=== PATIENT | female | born 1990 | race Caucasian/White ===

== ENCOUNTER 2019-01-28 18:27 | Emergency (ER) | payer OTHER ==
[~2019-01-28] VITALS: Ht 162.6 cm; Wt 131.8 kg
[2019-01-28] MEDS ORDERED: RIZA5TAB PO (18:41)
[2019-01-28] MEDS ORDERED: BUSP10TA PO (18:41)
[2019-01-28] MEDS ORDERED: VYVA40CA3 PO (18:41)
[2019-01-28] MEDS ORDERED: FLUO40CA PO (18:41)
[2019-01-28] MEDS ORDERED: RIZA10TA4 PO (18:41)
[2019-01-28] MEDS ORDERED: MECLIZINE 25 MG TABLET PO ONE (18:45)
[2019-01-28] MEDS ORDERED: NS 1,000 ML IV ONE (19:30)
[2019-01-28] MEDS ORDERED: MECL-68 PO (20:35)
[2019-01-28] MEDS ORDERED: ACETAMINOPHEN 500 MG TAB As Ordered ONE (20:58)
[2019-01-28] MEDS ORDERED: ACETAMINOPHEN 500 MG TAB PO ONE (21:00)
[2019-01-28 21:24] VITALS: BP 121/78
== END 2019-01-28 21:25 | disposition home or self-care (01) ==
LOC: EDBD 18:27 → M ED 18:27
DX: I95.1 Orthostatic hypotension (principal); H82.9 Vertiginous syndromes in diseases classified elsewhere, unspecified ear; H83.09 Labyrinthitis, unspecified ear; E66.01 Morbid (severe) obesity due to excess calories; F32.9 Major depressive disorder, single episode, unspecified; F41.9 Anxiety disorder, unspecified; F84.5 Asperger's syndrome; F90.9 Attention-deficit hyperactivity disorder, unspecified type; Z79.899 Other long term (current) drug therapy

== ENCOUNTER 2019-03-08 21:57 | Emergency (ER) | payer OTHER ==
[~2019-03-08] VITALS: Ht 162.6 cm; Wt 129.6 kg
[~2019-03-08 21:57] MED LIST: BUSP10TA PO; FLUO40CA PO; MECL-68 PO; RIZA10TA58 PO; RIZA5TAB PO; VYVA40CA3 PO
[2019-03-08] MEDS ORDERED: IBUPROFEN 100 MG/5 ML SUSP UDC DYE FREE PO ONE (23:45)
[2019-03-08] MEDS ORDERED: CEPHALEXIN SUSP POWDER 250MG/5ML BTL 100ML PO ONE (23:45)
[2019-03-09] MEDS ORDERED: KEFL500C17 PO (00:31)
[2019-03-09] MEDS ORDERED: IBUP-1022 PO (00:31)
[2019-03-09 01:14] VITALS: BP 128/82
[2019-03-09] MEDS ORDERED: PRED20TA PO (07:21)
[2019-03-09] MEDS ORDERED: AUGM875T28 PO (07:21)
[2019-03-10] MEDS ORDERED: AUGM875T28 PO (09:32)
[2019-03-10] MEDS ORDERED: BUSP30TA PO (09:32)
[2019-03-10] MEDS ORDERED: MECL-68 PO (09:32)
[2019-03-10] MEDS ORDERED: VYVA50CA4 PO (09:32)
[2019-03-10] MEDS ORDERED: PRED20TA PO (09:32)
[2019-03-10] MEDS ORDERED: FLUO20CA8 PO (09:32)
== END 2019-03-09 01:16 | disposition home or self-care (01) ==
LOC: M ED 21:57
DX: J03.90 Acute tonsillitis, unspecified (principal); Z79.899 Other long term (current) drug therapy

== ENCOUNTER 2019-03-09 06:31 | Emergency (ER) | payer OTHER ==
[~2019-03-09] VITALS: Ht 162.6 cm; Wt 129.6 kg
[~2019-03-09 06:31] MED LIST changes: +IBUP-1022 PO; +KEFL500C17 PO
[2019-03-09] MEDS ORDERED: AUGM875T28 PO (07:21)
[2019-03-09] MEDS ORDERED: PRED20TA PO (07:21)
[2019-03-09] MEDS ORDERED: AUGMENTIN 875 MG TAB PO ONE (07:30)
[2019-03-09] MEDS ORDERED: methylPREDNISolone INJ 125 MG/2 ML VIAL (J2930) IV ONE (07:30)
[2019-03-09] MEDS ORDERED: NS 1,000 ML IV ONE (07:30)
[2019-03-09 10:43] VITALS: BP 134/84
[2019-03-10] MEDS ORDERED: MECL-68 PO (09:32)
[2019-03-10] MEDS ORDERED: PRED20TA PO (09:32)
[2019-03-10] MEDS ORDERED: VYVA50CA4 PO (09:32)
[2019-03-10] MEDS ORDERED: AUGM875T28 PO (09:32)
[2019-03-10] MEDS ORDERED: BUSP30TA PO (09:32)
[2019-03-10] MEDS ORDERED: FLUO20CA8 PO (09:32)
== END 2019-03-09 11:08 | disposition home or self-care (01) ==
LOC: M ED 06:31
DX: J03.90 Acute tonsillitis, unspecified (principal); F84.5 Asperger's syndrome; F41.9 Anxiety disorder, unspecified; Z79.899 Other long term (current) drug therapy; Z98.890 Other specified postprocedural states; Z86.69 Personal history of other diseases of the nervous system and sense organs
CPT/HCPCS: 87880; 96374; 99284; J2930

== ENCOUNTER 2019-03-10 00:32 | Inpatient (IN) | payer OTHER ==
[~2019-03-10] VITALS: Ht 162.6 cm; Wt 129.6 kg
[~2019-03-10 00:32] MED LIST changes: +AUGM875T28 PO; +PRED20TA PO
[2019-03-10] MEDS ORDERED: ISOVUE-370 76% 100ML VIAL (Q9967) As Ordered ONE (05:40)
[2019-03-10] MEDS ORDERED: NS 1,000 ML IV ONE (05:45)
[2019-03-10] MEDS ORDERED: methylPREDNISolone INJ 125 MG/2 ML VIAL (J2930) IV ONE (05:45)
[2019-03-10 06:08] LABS: BASO # 0.1 10^3/uL (0.0-0.2); BASO % 0.4 % (0.0-1.0); HEMATOCRIT 38.3 % (36.0-47.0); HEMOGLOBIN 13.2 g/dl (12.0-15.5); LYMPH # 3.5 10^3/uL (1.5-5.0); LYMPH % 19.8 % (24.0-44.0); MEAN CORPUSCULAR HEMOGLOBIN 30.9 pg (27.0-33.0); MEAN CORPUSCULAR HGB CONC 34.5 g/dl (32.0-36.5); MEAN CORPUSCULAR VOLUME 89.7 fl (80.0-96.0); MONO # 1.7 10^3/uL (0.0-0.8); MONO % 9.7 % (0.0-5.0); NEUTROPHILS # 12.1 10^3/uL (1.5-8.5); NEUTROPHILS % 69.4 % (36.0-66.0); PLATELET COUNT, AUTOMATED 190 10^3/uL (150-450); RED BLOOD COUNT 4.27 10^6/uL (4.00-5.40); WHITE BLOOD COUNT 17.5 10^3/uL (4.0-10.0)
[2019-03-10 06:28] LABS: BLOOD UREA NITROGEN 14 MG/DL (7-18); C REACTIVE PROTEIN QUANTITATIV 9.02 MG/DL (0.00-0.30); CALCIUM LEVEL 8.7 MG/DL (8.5-10.1); CARBON DIOXIDE LEVEL 26 MEQ/L (21-32); CHLORIDE LEVEL 104 MEQ/L (98-107); CREATININE FOR GFR 0.66 MG/DL (0.55-1.30); GLOMERULAR FILTRATION RATE > 60.0 (>60); GLUCOSE, FASTING 119 MG/DL (70-100); POTASSIUM SERUM 4.2 MEQ/L (3.5-5.1); SODIUM LEVEL 137 MEQ/L (136-145)
--- NOTE | 2019-03-10 07:17 | REPVR ---
PROCEDURE INFORMATION: Exam: CT Neck With Contrast Exam date and time: 03/10/2019 5:35 AM Clinical history: 28 years old, female; Throat pain; Additional info: Right peritonsillar swelling w/ uvula dev TECHNIQUE: Imaging protocol: Computed tomography images of the neck with intravenous contrast. Radiation optimization: All CT scans at this facility use at least one of these dose optimization techniques: automated exposure control; mA and/or kV adjustment per patient size (includes targeted exams where dose is matched to clinical indication); or iterative reconstruction. Contrast material: ISO; Contrast volume: 75 ml; Contrast route: AC; COMPARISON: No relevant prior studies available. FINDINGS: Nasopharynx: Unremarkable. Oropharynx: There is diffuse enlargement of the palatine tonsils and, right greater than left. There is focal ill-defined hypodensity within the right tonsil, potentially developing abscess. Hypopharynx: Unremarkable Larynx: There is diffuse edema of the right epiglottis and right aryepiglottic fold, with effacement of the right vallecula and right piriform sinus. Retropharyngeal space: Unremarkable. Submandibular/Parotid glands: There is diffuse enlargement of the right submandibular gland, with associated inflammatory change, compatible with sialoadenitis. Inflammatory change appears to extend into the right floor of mouth. Thyroid: Normal. No enlarged or calcified nodules. Lymph nodes: There are enlarged upper cervical lymph nodes asymmetric to the right, likely reactive in nature Trachea: Visualized trachea is unremarkable. Lungs: Unremarkable as visualized. Bones/joints: Unremarkable. No acute fracture. Soft tissues: Unremarkable. No significant soft tissue swelling. IMPRESSION: 1. Right submandibular sialadenitis with extension into the right floor of mouth and larynx. Findings are worrisome for developing Lee angina. Close clinical monitoring and if evaluation are recommended. 2. Asymmetric enlargement of the right palatine tonsil with an ill-defined hypodensity, potentially developing peritonsillar abscess. 3. Reactive lymphadenopathy. Electronically signed by: Qi Groves On 03/10/2019 07:17:45 AM
[2019-03-10] MEDS ORDERED: CLINDAMYCIN 600 MG in IV 1 EA IV ONE (09:00)
[2019-03-10] MEDS ORDERED: INFLUENZA QUADRIVALENT PEDIATRIC PF VACCINE 0.25ML SYR (90685) IM ONE (09:00)
[2019-03-10] MEDS ORDERED: LIDOCAINE VISCOUS 2% SOLN 15ML UDC SS PRN (09:30)
[2019-03-10] MEDS ORDERED: AUGM875T28 PO (09:32)
[2019-03-10] MEDS ORDERED: BUSP30TA PO (09:32)
[2019-03-10] MEDS ORDERED: VYVA50CA4 PO (09:32)
[2019-03-10] MEDS ORDERED: PRED20TA PO (09:32)
[2019-03-10] MEDS ORDERED: FLUO20CA8 PO (09:32)
[2019-03-10] MEDS ORDERED: MECL-68 PO (09:32)
[2019-03-10] MEDS ORDERED: RIZATRIPTAN MLT 10 MG TAB PO PRN (10:15)
--- NOTE | 2019-03-10 10:24 | HPEPDOC ---
General Date of Admission 03/10/19 Date of Service: Mar 10, 2019 Chief Complaint The patient is a 28-year-old female admitted with a reason for visit of Throat Pain. History of Present Illness This is 28 years old, obese, white female with past medical history of migraine headache and psychiatric problems, had developed sore throat since last 2-3 days which progressively was getting worse. She was unable to swallow and the pain also radiated towards right neck and throat and decided come to ER. In the ED, patient received IV clindamycin Solu-Medrol and had a CT of the neck done which was consistent with peritonsillar cellulitis and right-sided sialoadenitis of submandibular region and we were asked to admit patient for observation. Patient is still complaining of pain and swelling in her throat and right side of her neck but no chest pain, fever, nausea, vomiting or shortness of breath Home Medications Scheduled Amoxicillin/Potassium Clav (Augmentin 875-125 Tablet) 1 Each Tablet, 875 MG PO BID, (Reported) for 10 days, started 03/09/19 Buspirone HCl (Buspirone HCl) 30 Mg Tablet, 30 MG PO BID, (Reported) Fluoxetine Hcl (Fluoxetine HCl) 20 Mg Capsule, 80 MG PO DAILY, (Reported) Lisdexamfetamine Dimesylate (Vyvanse) 50 Mg Capsule, 50 MG PO DAILY, (Reported) Prednisone (Prednisone) 20 Mg Tablet, 60 MG PO DAILY, (Reported) for 5 days, started 03/09/19 Scheduled PRN Meclizine HCl (Meclizine HCl) 25 Mg Tablet, 25 MG PO Q8H PRN for DIZZINESS, (Rep orted) Rizatriptan Benzoate (Rizatriptan) 10 Mg Tab.rapdis, 10 MG PO ASDIRECTED PRN for MIGRAINE, (Reported) Allergies Coded Allergies: No Known Allergies (Unverified , 01/28/19) Past Medical History Medical History Migraine headache, psychiatric problems. Patient did not specified the names. Surgical History Bilateral knee surgery and oral surgery Family History Significant Family History: No pertinent family hx Social History * Smoker: Denies Alcohol: Denies Drugs: denies A-FIB/CHADSVASC A-FIB History Current/History of A-Fib/PAF?: No Review of Systems Constitutional: Denies: Chills, Fever, Malaise, Night Sweats, Weakness, Fatigue, Weight Loss, Lethargy, Other Eyes: Denies: Pain, Vision change, Conjunctivae inflammation, Eyelid inflammation, Redness, Other ENT: Reports: Sore Throat, Other Symptoms (social work, swelling and pain right side of neck) Skin: Denies: Rash, Lesions, Jaundice, Bruising, Itching, Dry, Breakdown, Nail Changes, Other Pulmonary: Denies: Dyspnea, Cough, Pleuritic Chest Pain, Other Symptoms Cardiovascular: Denies: Chest Pain, Palpitations, Orthopnea, Paroxysmal Noc. Dyspnea, Edema, Lt Headedness, Other Symptoms Gastrointestinal: Denies: Nausea, Vomiting, Abdominal Pain, Diarrhea, Constipation, Melena, Hematochezia, Other Symptoms Genitourinary: Denies: Dysuria, Frequency, Incontinence, Hematuria, Retention, Other Symptoms Hematologic: Denies: Bruising, Bleeding Excessively, Petecchia, Purpura, Enlarged Lymph Nodes, Other Hematologic Endocrine: Denies: Polydipsia, Polyphagia, Polyuria, Heat Intolerance, Cold Intolerance, Other Endocrine Sx Musculoskeletal: Denies: Neck Pain, Back Pain, Shoulder Pain, Arm Pain, Hand Pain, Leg Pain, Foot Pain, Joint Pain, Muscle Pain, Spasms, Other Symptoms Neurological: Denies: Weakness, Numbness, Incoordination, Change in speech, Confusion, Seizures, Other Symptoms Psych: Denies: Mood Normal, Anxiety, Depression, Memory Issues, Thoughts of Self Harm, Anger, Thoughts of Harming Other, Other Psych Physical Examination General Exam: Positive: Alert, Cooperative Eye Exam: Positive: PERRLA, Conjunctiva & lids normal ENT Exam: Positive: Other ENT (. Unable to open her mouth wide for examination or tonsillar area secondary to pain and swelling. Positive tenderness on palpation right side of neck on the submandibular area) Neck Exam: Positive: Other (. As above) Chest Exam: Negative: Clear to auscultation, Normal air movement, Rales, Rhonchi, Wheezing, Diminished, Other Heart Exam: Negative: Rate Normal, Tachycardic, Bradycardic, Regular Rhythm, Irregular Rhythm, Normal S1, Normal S2, Gallops, Murmurs, Rubs, Other Abdomen Exam: Negative: Normal bowel sounds, BS Hyperactive, BS Hypoactive, Soft, Tenderness, Hepatospenomegaly, Mass, Hernia, Other Extremity Exam: Negative: Clubbing, Cyanosis, Edema, Normal pulses, Tenderness, Swelling, Other Skin Exam: Negative: Nl turgor and temperature, Rash, Breakdown, Lesion, Pruritus, Other skin issue Neuro Exam: Negative: Normal Gait, Normal Speech, Strength at 5/5 X4 ext, Normal Tone, Sensation Intact, Cranial Nerves 3-12 NL, Reflexes 2+, Other Psych Exam: Positive: Mood NL, Oriented x 3 Vital Signs Vital Signs Date Time Temp Pulse Resp B/P (MAP) Pulse Ox O2 Delivery O2 Flow Rate FiO2 03/10/19 06:00 88 20 132/72 (92) 100 Room Air 03/10/19 00:32 98.3 Laboratory Data Labs 24H Laboratory Tests 2 03/10/19 05:55: Immature Granulocyte % (Auto) 0.7, Neutrophils (%) (Auto) 69.4H, Lymphocytes (%) (Auto) 19.8L, Monocytes (%) (Auto) 9.7H, Eosinophils (%) (Auto) 0.0, Basophils (%) (Auto) 0.4, Neutrophils # (Auto) 12.1H, Lymphocytes # (Auto) 3.5, Monocytes # (Auto) 1.7H, Eosinophils # (Auto) 0.0, Basophils # (Auto) 0.1, Nucleated Red Blood Cells % (auto) 0.0, Anion Gap 7L, Glomerular Filtration Rate > 60.0, Calcium Level 8.7, C-Reactive Protein, Quantitative 9.02H CBC/BMP Laboratory Tests 03/10/19 05:55 Microbiology Microbiology 03/10/19 Blood Culture, Received Pending 03/10/19 Blood Culture, Received Pending Problems (1) Peritonsillitis Status: Acute Problem Text: 28 years old white female admitted with the diagnosis of peritonsillar cellulitis and sialoadenitis right submandibular area. Patient received clindamycin and IV Solu-Medrol in the ED for symptom relief and treatment Will admit patient to observation for for further close observation 24-48 hours to monitor for airway patency IV fluids normal saline at 70 mL per hour Clindamycin 600 mg IV every 6 hours Solu-Medrol 40 mg IV every 8 hours Lidocaine viscous solution when necessary Tylenol and Toradol when necessary for pain ENT consult was called from ED and is pending Will continue close monitoring as patient's shows significant improvement in her symptoms. She will be discharged home in next 24-48 hours (2) Sialadenitis Status: Acute Problem Text: As above Plan / VTE VTE Prophylaxis Ordered?: Yes RUPERT RUEDA MD Mar 10, 2019 10:24
[2019-03-10] MEDS ORDERED: methylPREDNISolone INJ 40 MG/1 ML VIAL (J2920) IV SCH (11:00)
[2019-03-10] MEDS ORDERED: LIDOCAINE VISCOUS 2% SOLN 15ML UDC SSP PRN (11:00)
[2019-03-10 11:15] VITALS: BP 137/77
--- NOTE | 2019-03-10 11:32 | ER ---
DATE OF CONSULTATION: 03/10/2019 REQUESTING PHYSICIAN: Simon Young MD, from the emergency room REASON FOR CONSULTATION: Is 2-day history of tonsillitis with possible swelling of the neck and possible early peritonsillar abnormality. HISTORY OF PRESENT ILLNESS: This pleasant but obese 28-year-old woman has a significant history of psychiatric issues and also migraine headaches. For the last 3 days or so, has had progressive sore throat. She has gone to the emergency room 2 days prior, received amoxicillin with clavulanic acid and feels as though it is progressively getting worse. She came in early this morning, reporting that she was unable to swallow, had pain radiating down her right neck. She was seen in the emergency room on 03/09/2019 and did receive Solu-Medrol, and the nurse who had seen her yesterday in the emergency room was the one that was also there today seeing her and stated there was a little bit more swelling on the right side of the neck, although not much. The patient reports progressive symptomatology with regard to the pain and also had reported that she has been drinking some water, but it has been difficult for her to take in fluids. She denies any chills. She believes she may have had a fever. She denies any hemoptysis or hematemesis. She denies any chest pain, fever at this time, nausea, vomiting or shortness of breath. She is currently able to handle her secretions. PAST MEDICAL HISTORY: Includes migraine headaches, psychiatric issues including generalized anxiety disorder. PAST SURGICAL HISTORY: Bilateral knee surgery and oral surgery in the past. CURRENT HOME MEDICATIONS: Included: - Augmentin one tablet 875 twice a day for 10 days - buspirone 30 mg tablet by mouth twice a day - fluoxetine 20 mg capsules, 80 mg daily - vyvanse 50 mg capsules by mouth daily - prednisone 20 mg, 60 mg by mouth daily - rizatriptan 10 mg tablets for migraine headaches as needed ALLERGIES: No known drug allergies. FAMILY HISTORY: Is noncontributory. SOCIAL HISTORY: Denies alcohol, drugs, or smoking history. REVIEW OF SYSTEMS: Denies fevers, chills, malaise, night sweats, weight loss. Eyes: Denies change in vision or eye pain. Ears, nose, and throat (ENT): She reports a sore throat and right side neck pain. Skin: Denies any rashes or bruising. Pulmonary: Denies dyspnea, cough, or chest pain. Cardiovascular: Denies palpitations, orthopnea, or lightheadedness. Gastrointestinal: Denies nausea, vomiting, abdominal pain. Genitourinary: Denies dysuria, frequency, or hematuria. Hematological: Denies bruising, bleeding, petechiae, purpura. Endocrine: Denies polydipsia, polyphagia, polyuria. Musculoskeletal: Denies back pain, shoulder pain. Neurological: Denies any weakness or numbness. Psychiatric: Does report anxiety and history of depression and memory issues. PHYSICAL EXAMINATION: The patient is seen in emergency room bay 17. The patient was initially resting comfortably on her left side when I came into the room and in no acute distress or pain. She is morbidly obese. The pinna, external canals, tympanic membranes are within normal limits. External nasal pyramid is unremarkable. Nasal mucosa is unremarkable. The patient is able to open up her mouth about 2.5-3 cm inter incisor. She has a small oral airway. The uvula is close to midline but possibly mildly shifted to the left. There is a little bit of exudative tonsillitis bilaterally present. There is a widely patent posterior oropharynx. No muffled voice. She has tenderness in the right submandibular region, but no induration is present. The angle of the mandible is easily palpable. She has generalized tenderness on the right side of the neck which cannot be adequately palpated as the patient reported pain. The left side did not show significant pain but mild pain. It should be mentioned that her vital signs, her temperature was 98.3, blood pressure is 132/72, pulse oximetry is 100% on room air. White count was 17.5, hemoglobin was 13.2, hematocrit 38.3, platelet count was 190. Blood cultures are pending. CT of the neck performed 03/10/2019 revealed right submandibular sialadenitis with extension into the right possible floor of mouth, worrisome for possible developing Lee angina. Asymmetric enlargement of the right palatine tonsil with an ill-defined hypodensity, potentially developing peritonsillar abscess and reactive lymphadenopathy. I IMPRESSION: Is a patient with acute right sialadenitis, as well as acute tonsillitis. Currently, no clear evidence of peritonsillar abscess at this time. Clinically, she does not have the appearance of a Lee angina, as the swelling in the floor is soft. There is no swelling underneath the floor of the tongue, and the submental region is soft. There is tenderness more in the right submandibular gland and swelling on the CT scan of the submandibular gland compatible with sialadenitis. My impression is that she has bad tonsillitis potentially on the way to potential peritonsillar abscess but has not developed at this time. Also, sialadenitis of the right submandibular gland with some lymphadenopathy, as well as generalized anxiety disorder. Currently, no evidence of any progression of her airway issues. She has received clindamycin in the intravenous (IV) form today and also Solu-Medrol. PLAN: At this point is to observe her for any potential issues with regard to her airway, but currently no significant issues are noted. Most likely, the patient has a bad tonsillitis with a right submandibular sialadenitis, as well. Would recommend the IV clindamycin. Will also have her use viscous lidocaine. We will have her on clear liquids today and see if she develops into either an abscess or if she shows signs of improvement. She is in agreement with this plan, and the options were discussed with her, with the nurse. All of her questions were answered. Will follow the patient with you. Thank you for this consultation. ALEJANDRA
[2019-03-10] MEDS: KETOROLAC 30 MG/ML VIAL (J1885) IV PRN ×2 (12:06→19:51)
[2019-03-10] MEDS: ENOXAPARIN 40 MG/0.4 ML SYRINGE (J1650) SC SCH (12:07)
[2019-03-10] MEDS: FLUoxetine 20 MG CAP PO SCH (12:07)
[2019-03-10] MEDS ORDERED: CLINDAMYCIN 600 MG in IV 1 EA IV SCH (13:00)
[2019-03-10] MEDS: busPIRone 10 MG TAB PO SCH ×2 (14:45→20:45)
[2019-03-10] MEDS: CLINDAMYCIN 600 MG in IV 1 EA IV SCH ×2 (14:45→20:45)
[2019-03-10] MEDS: methylPREDNISolone INJ 40 MG/1 ML VIAL (J2920) IV SCH ×2 (14:45→22:14)
[2019-03-10 16:00] VITALS: BP 135/93
[2019-03-10 20:00] VITALS: BP 125/77
[2019-03-11] VITALS: BP 124/80
[2019-03-11] MEDS: ACETAMINOPHEN TAB 650MG DOSE (2X325MG) PO PRN ×4 (00:41→20:26)
[2019-03-11] MEDS: CLINDAMYCIN 600 MG in IV 1 EA IV SCH ×4 (03:10→21:05)
[2019-03-11] MEDS: KETOROLAC 30 MG/ML VIAL (J1885) IV PRN ×3 (03:11→23:13)
[2019-03-11] MEDS: methylPREDNISolone INJ 40 MG/1 ML VIAL (J2920) IV SCH ×3 (06:00→23:01)
[2019-03-11 08:00] VITALS: BP 144/90
[2019-03-11 08:18] LABS: HEMATOCRIT 37.7 % (36.0-47.0); HEMOGLOBIN 12.5 g/dl (12.0-15.5); MEAN CORPUSCULAR HEMOGLOBIN 30.2 pg (27.0-33.0); MEAN CORPUSCULAR HGB CONC 33.2 g/dl (32.0-36.5); MEAN CORPUSCULAR VOLUME 91.1 fl (80.0-96.0); PLATELET COUNT, AUTOMATED 203 10^3/uL (150-450); RED BLOOD COUNT 4.14 10^6/uL (4.00-5.40); WHITE BLOOD COUNT 14.2 10^3/uL (4.0-10.0)
[2019-03-11 08:54] LABS: ALBUMIN 2.6 GM/DL (3.2-5.2); ALT/SGPT 78 U/L (12-78); BILIRUBIN,TOTAL 0.9 MG/DL (0.2-1.0); BLOOD UREA NITROGEN 16 MG/DL (7-18); CALCIUM LEVEL 8.5 MG/DL (8.5-10.1); CARBON DIOXIDE LEVEL 25 MEQ/L (21-32); CHLORIDE LEVEL 109 MEQ/L (98-107); CREATININE FOR GFR 0.54 MG/DL (0.55-1.30); GLOMERULAR FILTRATION RATE > 60.0 (>60); GLUCOSE, FASTING 134 MG/DL (70-100); MAGNESIUM LEVEL 2.4 MG/DL (1.8-2.4); POTASSIUM SERUM 4.1 MEQ/L (3.5-5.1); SODIUM LEVEL 139 MEQ/L (136-145); TOTAL PROTEIN 7.2 GM/DL (6.4-8.2)
[2019-03-11] MEDS: FLUoxetine 20 MG CAP PO SCH (09:21)
[2019-03-11] MEDS: busPIRone 10 MG TAB PO SCH ×2 (09:21→21:05)
[2019-03-11] MEDS: ENOXAPARIN 40 MG/0.4 ML SYRINGE (J1650) SC SCH (09:21)
--- NOTE | 2019-03-11 10:41 | IPN ---
DATE: 03/11/2019 SUBJECTIVE: The patient is feeling much better today. She was awakened from sleep. She denies any fevers or chills. She still has a little bit of pain in the right neck region, right submandibular region, not as much pain in the back of the throat as she had previously. She has not attempted to eat today but she is feeling better. OBJECTIVE: Vital signs: Today her temperature is 97.9, blood pressure 124/80, pulse 98% on room air. The overall appearance is the patient has much less swelling in the right neck region, right submandibular gland region, but still swollen. The pinna, external canals, tympanic membranes are within normal limits and nasal exam shows no discrete lesions. No purulent discharge. Oral exam shows the uvula is close to midline, slight inflammation still in right tonsillar region more than the left tonsillar region but airway is good. No evidence of any impending airway obstruction and the patient feels that the airway is much better today than it was yesterday. She has no tenderness to percussion of her mandibular molars or premolars. She is seen with the nurse present. She does have tenderness in the right submandibular gland and right zone II of the neck region as well. IMPRESSION: Patient is significantly improved today compared to yesterday. Impression is that she had acute tonsillitis and acute right submandibular sialadenitis. PLAN: The plan at this point is that I do not believe she has been require surgical intervention today, and I think she will likely just respond to the oral antibiotics for the 24 hours and then consider being placed on oral antibiotics. We will have her start mechanical soft diet today to see how she does. We will her nothing by mouth after midnight just in case there is any other significant issues; however, I do not believe that there will be any further issues and will likely be able to be discharged tomorrow morning if she continues to have good response. Care plan was discussed with her nurse and again would recommend have an n.p.o. after midnight and advance to mechanical soft diet. Continue with IV antibiotics today and consider tomorrow morning, if all goes well, switching to oral and considering discharge tomorrow.
--- NOTE | 2019-03-11 11:01 | IPNPDOC ---
Subjective Date Seen The patient was seen on 03/11/19. Subjective Chief Complaint/HPI Patient's swelling has decreased significantly and feeling much better. She is able to open her mouth General: Denies: ROS Unobtainable, Chills, Night Sweats, Fatigue, Malaise, Normal Appetite, Other Symptoms Constitutional: Denies: Chills, Fever, Malaise, Night Sweats, Weakness, Fatigue, Weight Loss, Lethargy, Other Eyes: Denies: Pain, Vision change, Conjunctivae inflammation, Eyelid inflammation, Redness, Other ENT: Reports: Sore Throat Skin: Denies: Rash, Lesions, Jaundice, Bruising, Itching, Dry, Breakdown, Nail Changes, Other Pulmonary: Denies: Dyspnea, Cough, Pleuritic Chest Pain, Other Symptoms Cardiovascular: Denies: Chest Pain, Palpitations, Orthopnea, Paroxysmal Noc. Dy spnea, Edema, Lt Headedness, Other Symptoms Gastrointestinal: Denies: Nausea, Vomiting, Abdominal Pain, Diarrhea, Constipation, Melena, Hematochezia, Other Symptoms Genitourinary: Denies: Dysuria, Frequency, Incontinence, Hematuria, Retention, Other Symptoms Musculoskeletal: Denies: Neck Pain, Back Pain, Shoulder Pain, Arm Pain, Hand Pain, Leg Pain, Foot Pain, Joint Pain, Muscle Pain, Spasms, Other Symptoms Neurological: Denies: Weakness, Numbness, Incoordination, Change in speech, Confusion, Seizures, Other Symptoms Objective Physical Examination General Exam: Positive: Alert, Cooperative Eye Exam: Positive: PERRLA, Conjunctiva & lids normal ENT Exam: Positive: Other ENT (. Unable to open her mouth wide for examination or tonsillar area secondary to pain and swelling. Positive tenderness on palpation right side of neck on the submandibular area) Neck Exam: Positive: Other (. As above) Chest Exam: Negative: Clear to auscultation, Normal air movement, Rales, Rhonch i, Wheezing, Diminished, Other Heart Exam: Negative: Rate Normal, Tachycardic, Bradycardic, Regular Rhythm, Irregular Rhythm, Normal S1, Normal S2, Gallops, Murmurs, Rubs, Other Abdomen Exam: Negative: Normal bowel sounds, BS Hyperactive, BS Hypoactive, So ft, Tenderness, Hepatospenomegaly, Mass, Hernia, Other Extremity Exam: Negative: Clubbing, Cyanosis, Edema, Normal pulses, Tenderness, Swelling, Other Skin Exam: Negative: Nl turgor and temperature, Rash, Breakdown, Lesion, Pruritus, Other skin issue Neuro Exam: Negative: Normal Gait, Normal Speech, Strength at 5/5 X4 ext, Normal Tone, Sensation Intact, Cranial Nerves 3-12 NL, Reflexes 2+, Other Psych Exam: Positive: Mood NL, Oriented x 3 Assessment /Plan Problems (1) Peritonsillitis Status: Acute Problem Text: Patient is responding very well to IV clindamycin and IV steroids Her WBC is significantly reduced and she is feeling better symptomatically Has swelling has significantly decreased. She is able to open her mouth and tolerated feeding ENT follow-up appreciated Eschen, most likely will be discharged home tomorrow (2) Sialadenitis Status: Acute Problem Text: Continue present care Plan/VTE VTE Prophylaxis Ordered?: Yes VS, I&O, 24H, Fishbone Vital Signs/I&O Vital Signs Date Time Temp Pulse Resp B/P (MAP) Pulse Ox O2 Delivery O2 Flow Rate FiO2 03/11/19 00:00 97.9 88 18 124/80 (95) 98 Room Air I&O- Last 24 Hours up to 6 AM 03/11/19 06:00 Intake Total 2105 ml Output Total 1300 ml Balance 805 ml Laboratory Data 24H LABS Laboratory Tests 2 03/11/19 08:03: Nucleated Red Blood Cells % (auto) 0.0, Anion Gap 5L, Glomerular Filtration Rate > 60.0, Calcium Level 8.5, Magnesium Level 2.4, Total Bilirubin 0.9, Aspartate Amino Transf (AST/SGOT) 24, Alanine Aminotransferase (ALT/SGPT) 78, Alkaline Phosphatase 88, Total Protein 7.2, Albumin 2.6L, Albumin/Globulin Ratio 0.57L CBC/BMP Laboratory Tests 03/11/19 08:03 Microbiology Microbiology 03/10/19 Blood Culture - Preliminary, Resulted No growth after 24 hours . All specim... 03/10/19 Blood Culture - Preliminary, Resulted No growth after 24 hours . All specim... RUPERT RUEDA MD Mar 11, 2019 11:01
[2019-03-11 16:00] VITALS: BP 138/90
[2019-03-11 20:00] VITALS: BP 136/80
[2019-03-12] VITALS (10 sets, daily range): BP systolic 102–139; BP diastolic 61–90
[2019-03-12] MEDS: CLINDAMYCIN 600 MG in IV 1 EA IV SCH ×4 (03:23→20:01)
[2019-03-12] MEDS: ACETAMINOPHEN TAB 650MG DOSE (2X325MG) PO PRN (04:35)
[2019-03-12] MEDS: methylPREDNISolone INJ 40 MG/1 ML VIAL (J2920) IV SCH ×2 (06:39→18:20)
[2019-03-12 07:48] LABS: HEMOGLOBIN 12.6 g/dl (12.0-15.5); MEAN CORPUSCULAR HEMOGLOBIN 30.4 pg (27.0-33.0); MEAN CORPUSCULAR HGB CONC 33.2 g/dl (32.0-36.5); MEAN CORPUSCULAR VOLUME 91.8 fl (80.0-96.0); PLATELET COUNT, AUTOMATED 208 10^3/uL (150-450); RED BLOOD COUNT 4.14 10^6/uL (4.00-5.40); WHITE BLOOD COUNT 14.2 10^3/uL (4.0-10.0)
[2019-03-12 08:10] LABS: ATYPICAL LYMPH 7 % (0-5); LYMPHOCYTES 14 % (16-44); NEUTROPHILS 79 % (28-66); PLATELET ESTIMATE NORMAL (NORMAL)
[2019-03-12] MEDS: FLUoxetine 20 MG CAP PO SCH (08:11)
[2019-03-12] MEDS: ENOXAPARIN 40 MG/0.4 ML SYRINGE (J1650) SC SCH (08:11)
[2019-03-12] MEDS: busPIRone 10 MG TAB PO SCH ×2 (08:11→20:01)
[2019-03-12 08:15] LABS: ALBUMIN 2.3 GM/DL (3.2-5.2); ALT/SGPT 57 U/L (12-78); BILIRUBIN,TOTAL 0.9 MG/DL (0.2-1.0); BLOOD UREA NITROGEN 16 MG/DL (7-18); CALCIUM LEVEL 8.3 MG/DL (8.5-10.1); CARBON DIOXIDE LEVEL 27 MEQ/L (21-32); CHLORIDE LEVEL 107 MEQ/L (98-107); CREATININE FOR GFR 0.65 MG/DL (0.55-1.30); GLOMERULAR FILTRATION RATE > 60.0 (>60); GLUCOSE, FASTING 132 MG/DL (70-100); POTASSIUM SERUM 4.4 MEQ/L (3.5-5.1); SODIUM LEVEL 138 MEQ/L (136-145); TOTAL PROTEIN 6.6 GM/DL (6.4-8.2)
[2019-03-12] MEDS ORDERED: INFLUENZA QUADRIVALENT PF VACCINE 0.5ML SYRINGE (90686) IM ONE (09:00)
--- NOTE | 2019-03-12 11:05 | IPNPDOC ---
Subjective Date Seen The patient was seen on 03/12/19. Subjective Chief Complaint/HPI Patient is scheduled for surgery today for drainage of abscess on right side of her neck General: Denies: ROS Unobtainable, Chills, Night Sweats, Fatigue, Malaise, Normal Appetite, Other Symptoms Constitutional: Denies: Chills, Fever, Malaise, Night Sweats, Weakness, Fatigue, Weight Loss, Lethargy, Other ENT: Reports: Other Symptoms (increased swelling and firmness on right side of her neck, under the mandible, left) Pulmonary: Denies: Dyspnea, Cough, Pleuritic Chest Pain, Other Symptoms Cardiovascular: Denies: Chest Pain, Palpitations, Orthopnea, Paroxysmal Noc. Dyspnea, Edema, Lt Headedness, Other Symptoms Gastrointestinal: Denies: Nausea, Vomiting, Abdominal Pain, Diarrhea, Constipation, Melena, Hematochezia, Other Symptoms Neurological: Denies: Weakness, Numbness, Incoordination, Change in speech, Confusion, Seizures, Other Symptoms Psych: Denies: Mood Normal, Anxiety, Depression, Memory Issues, Thoughts of Self Harm, Anger, Thoughts of Harming Other, Other Psych Objective Physical Examination General Exam: Positive: Alert, Cooperative Eye Exam: Positive: PERRLA, Conjunctiva & lids normal ENT Exam: Positive: Other ENT (. Unable to open her mouth wide for examination or tonsillar area secondary to pain and swelling. Positive tenderness on palpation right side of neck on the submandibular area) Neck Exam: Positive: Other (. As above) Chest Exam: Negative: Clear to auscultation, Normal air movement, Rales, Rhon chi, Wheezing, Diminished, Other Heart Exam: Negative: Rate Normal, Tachycardic, Bradycardic, Regular Rhythm, Irregular Rhythm, Normal S1, Normal S2, Gallops, Murmurs, Rubs, Other Abdomen Exam: Negative: Normal bowel sounds, BS Hyperactive, BS Hypoactive, Soft, Tenderness, Hepatospenomegaly, Mass, Hernia, Other Extremity Exam: Negative: Clubbing, Cyanosis, Edema, Normal pulses, Tenderness, Swelling, Other Skin Exam: Negative: Nl turgor and temperature, Rash, Breakdown, Lesion, Pruritus, Other skin issue Neuro Exam: Negative: Normal Gait, Normal Speech, Strength at 5/5 X4 ext, Normal Tone, Sensation Intact, Cranial Nerves 3-12 NL, Reflexes 2+, Other Psych Exam: Positive: Mood NL, Oriented x 3 Assessment /Plan Problems (1) Peritonsillar abscess Status: Acute Problem Text: Peritonsillitis has now formally formed into a peritonsillar abscess ENT consult and follow-up is appreciated Patient is a scheduled for I&D of right submandibular abscess today Will await wound cultures. Once available Continue IV antibiotics Will taper off IV solumedrol Further recommendations as per ENT (2) Sialadenitis Status: Acute Problem Text: Continue present care Plan/VTE VTE Prophylaxis Ordered?: Yes VS, I&O, 24H, Fishbone Vital Signs/I&O Vital Signs Date Time Temp Pulse Resp B/P (MAP) Pulse Ox O2 Delivery O2 Flow Rate FiO2 03/12/19 08:00 97.7 82 16 128/80 (96) 97 Room Air I&O- Last 24 Hours up to 6 AM 03/12/19 05:59 Intake Total 2100 ml Output Total 1150 ml Balance 950 ml Laboratory Data 24H LABS Laboratory Tests 2 03/12/19 07:19: Nucleated Red Blood Cells % (auto) 0.0, Neutrophils 79H, Lymphocytes (Manual) 14L, Atypical Lymphocytes 7H, Red Blood Cell Morphology NORMAL, Platelet Estimate NORMAL, Anion Gap 4L, Glomerular Filtration Rate > 60.0, Calcium Level 8.3L, Total Bilirubin 0.9, Aspartate Amino Transf (AST/SGOT) 17, Alanine Aminotransferase (ALT/SGPT) 57, Alkaline Phosphatase 75, Total Protein 6.6, Albumin 2.3L, Albumin/Globulin Ratio 0.53L CBC/BMP Laboratory Tests 03/12/19 07:19 Microbiology Microbiology 03/10/19 Blood Culture - Preliminary, Resulted No Growth after 48 hours. All Specime... 03/10/19 Blood Culture - Preliminary, Resulted No Growth after 48 hours. All Specime... RUPERT RUEDA MD Mar 12, 2019 11:05
[2019-03-12] MEDS ORDERED: BUPIVACAINE HCL 0.25% 10 ML VIAL As Ordered ONE (12:09)
[2019-03-12] MEDS ORDERED: LIDOCAINE 1% MDV 20ML VIAL As Ordered ONE (12:09)
[2019-03-12] MEDS ORDERED: LIDOCAINE W/EPINEPHRINE 1% 20ML VIAL As Ordered ONE (12:10)
[2019-03-12] MEDS ORDERED: PHENYLEPHRINE 0.5% NASAL SPRAY 15 ML As Ordered ONE (12:10)
[2019-03-12] MEDS ORDERED: METHYLENE BLUE 0.5% (5MG/ML) 10 ML AMP (PROVAYBLUE)(Q9968 PER 1MG) As Ordered ONE (12:10)
[2019-03-12] MEDS ORDERED: CETACAINE SPRAY 5GM As Ordered ONE (12:17)
[2019-03-12] MEDS ORDERED: ROCURONIUM BROMIDE 50 MG/5 ML VIAL As Ordered ONE (12:17)
[2019-03-12] MEDS ORDERED: fentaNYL 250 MCG/5 ML INJECTION (J3010) As Ordered ONE (12:17)
[2019-03-12] MEDS ORDERED: PROPOFOL 200 MG/20 ML VIAL As Ordered ONE (12:17)
[2019-03-12] MEDS ORDERED: MIDAZOLAM INJ 2 MG/2 ML VIAL (J2250) As Ordered ONE ×2 (12:17→12:47)
[2019-03-12] MEDS ORDERED: LIDOCAINE 2% INJ 100 MG/5 ML SDV (FOR ANES.) As Ordered ONE (12:17)
[2019-03-12] MEDS ORDERED: SUCCINYLCHOLINE 100 MG/5 ML SYRINGE (J0330) As Ordered ONE (12:17)
[2019-03-12] MEDS ORDERED: KETAMINE HCL 200 MG/20 ML VIAL As Ordered ONE (12:52)
[2019-03-12] MEDS ORDERED: ONDANSETRON 4MG/2ML VIAL (J2405) As Ordered ONE (13:26)
[2019-03-12] MEDS ORDERED: METOCLOPRAMIDE INJ 10MG/2ML VIAL (J2765) As Ordered ONE (13:26)
[2019-03-12] MEDS ORDERED: dexameTHASONE 4 MG/ML 1ML VIAL (J1100) As Ordered ONE (13:26)
[2019-03-12] MEDS ORDERED: KETOROLAC 60 MG/2 ML VIAL (J1885) As Ordered ONE (13:26)
[2019-03-12] MEDS ORDERED: LR 1,000 ML IV SCH (14:15)
[2019-03-12] MEDS ORDERED: ONDANSETRON 4MG/2ML VIAL (J2405) IV PRN (14:15)
[2019-03-12] MEDS ORDERED: HYDROMORPHONE HCL 0.5 MG/ 0.5 ML SYRINGE (J1170 PER 1) IV PRN (14:15)
[2019-03-12] MEDS ORDERED: fentaNYL 100 MCG/2 ML INJECTION (J3010) IV PRN (14:15)
[2019-03-12] MEDS ORDERED: METOCLOPRAMIDE INJ 10MG/2ML VIAL (J2765) IV PRN (14:15)
[2019-03-12] MEDS ORDERED: oxyCODONE 5MG TAB PO PRN (14:15)
[2019-03-12] MEDS ORDERED: GLYCOPYRROLATE INJ 0.2 MG/ML 2 ML VIAL As Ordered ONE (14:27)
[2019-03-12] MEDS ORDERED: SCOPOLAMINE 1MG TRANSDERMAL PATCH TOP ONE (16:00)
[2019-03-13] VITALS (7 sets, daily range): BP systolic 117–137; BP diastolic 66–90
[2019-03-13] MEDS: KETOROLAC 30 MG/ML VIAL (J1885) IV PRN ×3 (01:40→17:58)
[2019-03-13] MEDS: CLINDAMYCIN 600 MG in IV 1 EA IV SCH ×4 (03:50→20:00)
[2019-03-13] MEDS: methylPREDNISolone INJ 40 MG/1 ML VIAL (J2920) IV SCH (06:22)
[2019-03-13 07:03] LABS: HEMATOCRIT 39.5 % (36.0-47.0); MEAN CORPUSCULAR HEMOGLOBIN 30.3 pg (27.0-33.0); MEAN CORPUSCULAR HGB CONC 32.9 g/dl (32.0-36.5); MEAN CORPUSCULAR VOLUME 92.1 fl (80.0-96.0); PLATELET COUNT, AUTOMATED 241 10^3/uL (150-450); RED BLOOD COUNT 4.29 10^6/uL (4.00-5.40); WHITE BLOOD COUNT 13.3 10^3/uL (4.0-10.0)
[2019-03-13 08:02] LABS: ATYPICAL LYMPH 7 % (0-5); LYMPHOCYTES 18 % (16-44); MONOCYTES 10 % (0-5); NEUTROPHILS 63 % (28-66); PLATELET ESTIMATE NORMAL (NORMAL)
[2019-03-13 08:03] LABS: ANISOCYTOSIS 1+
[2019-03-13] MEDS: ENOXAPARIN 40 MG/0.4 ML SYRINGE (J1650) SC SCH (08:39)
[2019-03-13] MEDS: ACETAMINOPHEN TAB 650MG DOSE (2X325MG) PO PRN ×2 (08:40→16:28)
[2019-03-13] MEDS: busPIRone 10 MG TAB PO SCH ×2 (08:40→19:59)
[2019-03-13] MEDS: FLUoxetine 20 MG CAP PO SCH (08:41)
--- NOTE | 2019-03-13 08:49 | RO ---
DATE OF PROCEDURE: 03/12/2019 PREOPERATIVE DIAGNOSIS: Patient initially with peritonsillar cellulitis initially improving on IV antibiotics and then this morning started to take a turn for the worse on IV clindamycin with stabilizing white count but increasing peritonsillar swelling on the right side, also slight increase in right neck swelling and induration. POSTOPERATIVE DIAGNOSIS: Right peritonsillar abscess finally developed and also with right neck cellulitis but no abscess at this time. OPERATION PERFORMED: Incision and drainage of right peritonsillar abscess intraorally. The patient was prepared for possible emergency tracheotomy if necessary. SURGEON: Dr. Juan De La Rosa. ANESTHESIA: General via endotracheal tube. INDICATIONS FOR PROCEDURE: This patient initially improving on IV antibiotics. However, this morning, significant change with peritonsillar swelling on the right side and potential abscess formation in the neck but definitely significantly more cellulitis on the right side. PROCEDURE IN DETAIL: With the patient brought in from the recovery room, the nurse life insurance specialist had reported that patient was sprayed with benzocaine in the preop area and then patient was coughing and had some spontaneous pus drainage and thought it may be about 20 mL or possibly more and then the patient still came to the operating room and then with the GlideScope, awake visualization was done with us being prepared for tracheotomy if necessary. Prior to looking with the GlideScope the patient's landmarks were identified and she was prepped and draped in the usual fashion for possible emergency tracheotomy if necessary. The patient then was prepared and a GlideScope was initially utilized. It was somewhat difficult for the anesthesiologist and the life insurance specialist to initially get the endotracheal tube in but we were successful and the patient then was put to sleep. The patient was turned 90 degrees placed in the Taya position, grooved tongue blade was placed with a Renny Ellie mouth gag and there was pus that was in the posterior oropharynx on the right side. This was suctioned out and cultured. There was a needle that was placed in the right peritonsillar region. Some pus was obtained and then an 11 blade was used to make an incision approximately 1-1/2 to 2 cm and then dissected with tonsillar snaps along the peritonsillar abscess site. The patient had about 5 mL of pus that was drained out of that area. However in the preop area, apparently there was more present after she was anesthetized with topical oral anesthetic. At this point, the cavity was then probed with Q-tips and was cleaned with hydrogen peroxide and Q-tips. The neck was re-evaluated and 18-gauge needle was placed in two separate sites. There was no ballotability. There was no pus that was obtained from the right neck region and appeared to be primarily cellulitic changes. At this point, decision was made not to open up the neck as there was pus that was in the peritonsillar region and this seemed to be the nidus of the infection. The uvula went closer to the midline after dissection was done and this was cleaned out. At this point, the wound was copiously irrigated with saline and then an LTA was placed to prevent any laryngospasm and then the patient was turned over to the anesthesiologist. The patient was extubated without any problems and could significantly in the postop area open up the oral cavity significantly wider than before. We will have her continue with IV antibiotics and have her on clear liquid diet and then follow her and make sure she does not develop any further infections or abscesses. Estimated blood loss was 10 mL. Cultures obtained were aerobic, anaerobic and Gram stains were sent.
[2019-03-13] MEDS ORDERED: INFLUENZA QUADRIVALENT PF VACCINE 0.5ML SYRINGE (90686) IM ONE (09:00)
--- NOTE | 2019-03-13 11:49 | IPNPDOC ---
Subjective Date Seen The patient was seen on 03/13/19. Subjective Chief Complaint/HPI Patient is decreased, but swelling is still present on right side of face and neck General: Reports: ROS Unobtainable Constitutional: Denies: Chills, Fever, Malaise, Night Sweats, Weakness, Fatigue, Weight Loss, Lethargy, Other Eyes: Denies: Pain, Vision change, Conjunctivae inflammation, Eyelid inflammation, Redness, Other ENT: Reports: Other Symptoms (swelling of right side of face and neck) Skin: Denies: Rash, Lesions, Jaundice, Bruising, Itching, Dry, Breakdown, Nail Changes, Other Pulmonary: Denies: Dyspnea, Cough, Pleuritic Chest Pain, Other Symptoms Cardiovascular: Denies: Chest Pain, Palpitations, Orthopnea, Paroxysmal Noc. Dyspnea, Edema, Lt Headedness, Other Symptoms Gastrointestinal: Denies: Nausea, Vomiting, Abdominal Pain, Diarrhea, Constipation, Melena, Hematochezia, Other Symptoms Musculoskeletal: Denies: Neck Pain, Back Pain, Shoulder Pain, Arm Pain, Hand Pain, Leg Pain, Foot Pain, Joint Pain, Muscle Pain, Spasms, Other Symptoms Neurological: Denies: Weakness, Numbness, Incoordination, Change in speech, Confusion, Seizures, Other Symptoms Objective Physical Examination General Exam: Positive: Alert, Cooperative Eye Exam: Positive: PERRLA, Conjunctiva & lids normal ENT Exam: Positive: Other ENT (. Positive swelling right side of face and neck below the mandible decreased tenderness) Chest Exam: Negative: Clear to auscultation, Normal air movement, Rales, Rhonchi, Wheezing, Diminished, Other Heart Exam: Negative: Rate Normal, Tachycardic, Bradycardic, Regular Rhythm, Irregular Rhythm, Normal S1, Normal S2, Gallops, Murmurs, Rubs, Other Abdomen Exam: Negative: Normal bowel sounds, BS Hyperactive, BS Hypoactive, Soft, Tenderness, Hepatospenomegaly, Mass, Hernia, Other Extremity Exam: Negative: Clubbing, Cyanosis, Edema, Normal pulses, Tenderness, Swelling, Other Skin Exam: Negative: Nl turgor and temperature, Rash, Breakdown, Lesion, Pruritus, Other skin issue Neuro Exam: Negative: Normal Gait, Normal Speech, Strength at 5/5 X4 ext, Normal Tone, Sensation Intact, Cranial Nerves 3-12 NL, Reflexes 2+, Other Psych Exam: Positive: Mood NL, Oriented x 3 Assessment /Plan Problems (1) Peritonsillar abscess Status: Acute Problem Text: Peritonsillitis has now formally formed into a peritonsillar abscess Status post I&D by ENT. Official report pending Wound culture sent out for culture and sensitivity reports pending Continue IV antibiotics To continue tapering off his Solu-Medrol Will follow ENTs recommendations (2) Sialadenitis Status: Acute Problem Text: Continue present care Plan/VTE VTE Prophylaxis Ordered?: Yes VS, I&O, 24H, Fishbone Vital Signs/I&O Vital Signs Date Time Temp Pulse Resp B/P (MAP) Pulse Ox O2 Delivery O2 Flow Rate FiO2 03/13/19 08:00 97.5 70 18 129/88 (102) 97 Room Air 03/12/19 17:50 1.0 I&O- Last 24 Hours up to 6 AM 03/13/19 05:59 Intake Total 2120 ml Output Total 1060 ml Balance 1060 ml Laboratory Data 24H LABS Laboratory Tests 2 03/13/19 06:53: Nucleated Red Blood Cells % (auto) 0.0, Neutrophils 63, Band Neutrophils 2, Lymphocytes (Manual) 18, Monocytes (Manual) 10H, Atypical Lymphocytes 7H, Anisocytosis 1+, Platelet Estimate NORMAL CBC/BMP Laboratory Tests 03/13/19 06:53 Microbiology Microbiology 03/12/19 Gram Stain - Final, Resulted 03/12/19 Abscess Culture, Resulted Pending 03/12/19 Anaerobic Culture, Resulted Pending 03/12/19 Gram Stain - Final, Resulted 03/12/19 Abscess Culture, Resulted Pending 03/12/19 Anaerobic Culture, Resulted Pending 03/10/19 Blood Culture - Preliminary, Resulted No Growth after 72 hours. All specime... 03/10/19 Blood Culture - Preliminary, Resulted No Growth after 72 hours. All specime... RUPERT RUEDA MD Mar 13, 2019 11:49
[2019-03-13] MEDS ORDERED: ISOVUE-370 76% 100ML VIAL (Q9967) As Ordered ONE (12:24)
[2019-03-13] MEDS: predniSONE 10 MG TAB PO SCH (13:22)
--- NOTE | 2019-03-13 13:27 | REP ---
Clinical: History of recent incision and drainage for right peritonsillar abscess. Technique: Axial contrast enhanced images from the skull base to the thoracic inlet with coronal and sagittal re-formations. Comparison: 03/10/2019. Findings: Extensive inflammatory changes including swelling, inflammatory stranding, adenopathy, and ill-defined areas of low density suggesting insinuating fluid as well as scattered foci of gas are identified primarily noted in the right perimandibular, submandibular and parapharyngeal spaces. These findings are consistent with the previously diagnosed right submandibular sialadenitis and small right peritonsillar abscess for which incision and drainage was performed. Mass effect along with moderate contralateral shift to the airway through the oropharynx and floor of the mouth extending to the right parapharyngeal region is again identified. No obvious discrete residual abscess is appreciated. Reactive adenopathy noted. Impression: 1. Findings consistent with continued evidence for right-sided submandibular sialoadenitis with surrounding soft tissue swelling extending into the right side of the oropharynx and parapharyngeal space similar to prior examination. 2. New foci of gas consistent with recent incision and drainage. No obvious discrete residual drainable collection is identified. 3. The airway remains patent but should be correlated with physical examination as mass effect along the right side is noted. Electronically Signed by Joon Sharma MD 03/13/2019 01:19 P
[2019-03-13] MEDS: cefTAZidime 1 GM in D5W MINI-BAG PLUS 50 ML IV SCH (16:15)
--- NOTE | 2019-03-13 20:14 | IPN ---
DATE: 03/13/2019 SUBJECTIVE: The patient is postoperative day #1 status post incision and drainage of a right peritonsillar abscess who initially had lilli pus that was identified. She last night did have a small blood clot that came out of the incision and drainage site early in the morning. Bleeding stopped after she started to suck on ice chips and was controlled. Initially postoperatively she could open up her mouth very wide in the recovery room. Today, she is having a little bit more difficulty with opening up her mouth. She feels better than she did previous to surgery but not as well as she did initially after the surgical intervention. Mom is at the bedside. She reports no chills. She feels somewhat improved from the previous day but not significantly improved from prior to surgery. There is still some swelling and tenderness in the right cheek upper neck region. OBJECTIVE: The patient is currently afebrile for the last 24 hours. Current temperature is 97.5, blood pressure is 129/88, pulse oximetry is 97% on room air. Generalized, the patient still has some obvious swelling, now appears to be more over the right parotid region, right posterior aspect. It appears to be less indurated today. The needle pokes show no sign of infection from needle aspiration which was negative for any pus yesterday. Intraoral exam reveals the incision and drainage site to the right peritonsillar abscess site shows a little bit of purulent saliva discharge present. However, the uvula is becoming more midline. Pressing on the neck did not increase any of the drainage from this area. She has no problems with her airway or talking. LABORATORY DATA: White count is 13.3, which is down from the previous day, initially on 03/10/2019 it was 17.5. She has had decreased neutrophils but does show two bands which she did not show the previous day. She also is showing some atypical lymphocytes. Gram stains yesterday revealed many gram-positive cocci in pairs and chains, many gram-negative rods, and moderate gram-positive rods, so polymicrobial. IMPRESSION: Patient with multiple organisms identified on Gram stain. She had been previously on Augmentin as an outpatient and then started on IV clindamycin and initially showed some improvement but then worsening was identified yesterday. She was take to the OR. Cultures and sensitivities will be pending. PLAN: At this point, because of the gram-negative rods which are not covered well by clindamycin, we will have the nurse consult with the hospitalist. I would recommend considering adding ceftazidime 1 gram IV every 8 hours for gram-negative mervin coverage. Will also order a CT scan to see if there is any occult abscess site that could not be identified at the time of surgery. I suspect this is just more generalized cellulitis but would like to be proactive. Because the patient's gram-negative mervin status and decreased ability of clindamycin to cover that, the patient may need added coverage. Will order the CT scan. Will have her nothing by mouth after midnight just in case things progress. However, I do not believe that they are. She is clinically improved. However, still a fair amount of soft tissue swelling which I believe is more cellulitis and another focus of abscess site. Will follow the patient.
[2019-03-14] MEDS: KETOROLAC 30 MG/ML VIAL (J1885) IV PRN ×2 (00:02→23:30)
[2019-03-14] MEDS: cefTAZidime 1 GM in D5W MINI-BAG PLUS 50 ML IV SCH ×4 (00:03→23:30)
[2019-03-14] MEDS: CLINDAMYCIN 600 MG in IV 1 EA IV SCH ×4 (02:52→21:13)
[2019-03-14] MEDS: ACETAMINOPHEN TAB 650MG DOSE (2X325MG) PO PRN ×2 (02:55→07:57)
[2019-03-14] MEDS ORDERED: KETOROLAC 30 MG/ML VIAL (J1885) IV ONE (03:00)
[2019-03-14 06:47] LABS: BASO % 0.3 % (0.0-1.0); HEMATOCRIT 37.3 % (36.0-47.0); HEMOGLOBIN 12.4 g/dl (12.0-15.5); LYMPH # 1.3 10^3/uL (1.5-5.0); LYMPH % 13.6 % (24.0-44.0); MEAN CORPUSCULAR HEMOGLOBIN 30.3 pg (27.0-33.0); MEAN CORPUSCULAR HGB CONC 33.2 g/dl (32.0-36.5); MEAN CORPUSCULAR VOLUME 91.2 fl (80.0-96.0); MONO # 0.8 10^3/uL (0.0-0.8); MONO % 8.5 % (0.0-5.0); NEUTROPHILS # 7.4 10^3/uL (1.5-8.5); NEUTROPHILS % 75.4 % (36.0-66.0); PLATELET COUNT, AUTOMATED 209 10^3/uL (150-450); RED BLOOD COUNT 4.09 10^6/uL (4.00-5.40); WHITE BLOOD COUNT 9.8 10^3/uL (4.0-10.0)
[2019-03-14 07:02] LABS: ALBUMIN 2.2 GM/DL (3.2-5.2); ALT/SGPT 33 U/L (12-78); BILIRUBIN,TOTAL 0.7 MG/DL (0.2-1.0); BLOOD UREA NITROGEN 19 MG/DL (7-18); CALCIUM LEVEL 8.1 MG/DL (8.5-10.1); CARBON DIOXIDE LEVEL 27 MEQ/L (21-32); CHLORIDE LEVEL 103 MEQ/L (98-107); CREATININE FOR GFR 0.75 MG/DL (0.55-1.30); GLOMERULAR FILTRATION RATE > 60.0 (>60); GLUCOSE, FASTING 99 MG/DL (70-100); POTASSIUM SERUM 3.6 MEQ/L (3.5-5.1); SODIUM LEVEL 137 MEQ/L (136-145); TOTAL PROTEIN 6.3 GM/DL (6.4-8.2)
[2019-03-14 08:00] VITALS: BP 120/58
[2019-03-14] MEDS: FLUoxetine 20 MG CAP PO SCH (09:14)
[2019-03-14] MEDS: busPIRone 10 MG TAB PO SCH ×2 (09:15→21:13)
[2019-03-14] MEDS: predniSONE 10 MG TAB PO SCH (09:15)
--- NOTE | 2019-03-14 09:22 | IPNPDOC ---
Subjective Date Seen The patient was seen on 03/14/19. Subjective Chief Complaint/HPI Patient is comfortable, complains that swelling is still present on right side of her face and neck and complaining of some pain at the site General: Denies: ROS Unobtainable, Chills, Night Sweats, Fatigue, Malaise, Normal Appetite, Other Symptoms Constitutional: Denies: Chills, Fever, Malaise, Night Sweats, Weakness, Fatigue, Weight Loss, Lethargy, Other ENT: Reports: Other Symptoms (swelling and pain at the right side of face and neck) Pulmonary: Denies: Dyspnea, Cough, Pleuritic Chest Pain, Other Symptoms Cardiovascular: Denies: Chest Pain, Palpitations, Orthopnea, Paroxysmal Noc. Dyspnea, Edema, Lt Headedness, Other Symptoms Gastrointestinal: Denies: Nausea, Vomiting, Abdominal Pain, Diarrhea, Consti pation, Melena, Hematochezia, Other Symptoms Musculoskeletal: Denies: Neck Pain, Back Pain, Shoulder Pain, Arm Pain, Hand Pain, Leg Pain, Foot Pain, Joint Pain, Muscle Pain, Spasms, Other Symptoms Neurological: Denies: Weakness, Numbness, Incoordination, Change in speech, Confusion, Seizures, Other Symptoms Objective Physical Examination General Exam: Positive: Alert, Cooperative Eye Exam: Positive: PERRLA, Conjunctiva & lids normal ENT Exam: Positive: Other ENT (. Positive swelling right side of face and neck below the mandible decreased tenderness) Chest Exam: Negative: Clear to auscultation, Normal air movement, Rales, Rhonchi, Wheezing, Diminished, Other Heart Exam: Negative: Rate Normal, Tachycardic, Bradycardic, Regular Rhythm, Irregular Rhythm, Normal S1, Normal S2, Gallops, Murmurs, Rubs, Other Abdomen Exam: Negative: Normal bowel sounds, BS Hyperactive, BS Hypoactive, Soft, Tenderness, Hepatospenomegaly, Mass, Hernia, Other Extremity Exam: Negative: Clubbing, Cyanosis, Edema, Normal pulses, Tenderness, Swelling, Other Skin Exam: Negative: Nl turgor and temperature, Rash, Breakdown, Lesion, Pruritus, Other skin issue Neuro Exam: Negative: Normal Gait, Normal Speech, Strength at 5/5 X4 ext, Normal Tone, Sensation Intact, Cranial Nerves 3-12 NL, Reflexes 2+, Other Psych Exam: Positive: Mood NL, Oriented x 3 Assessment /Plan Problems (1) Peritonsillar abscess Status: Acute Problem Text: Peritonsillitis has now formally formed into a peritonsillar abscess Status post I&D by ENT 2 days ago Continue Clinda and ceftazidime WBC count is 9.8 today and electrolytes are within normal range Decrease prednisone to 20 mg by mouth today Further delays per ENTs recommendation (2) Sialadenitis Status: Acute Problem Text: Continue present care Plan/VTE VTE Prophylaxis Ordered?: Yes VS, I&O, 24H, Fishbone Vital Signs/I&O Vital Signs Date Time Temp Pulse Resp B/P (MAP) Pulse Ox O2 Delivery O2 Flow Rate FiO2 03/14/19 04:00 98 Room Air 03/13/19 23:58 98.2 74 18 137/81 (99) 03/12/19 17:50 1.0 I&O- Last 24 Hours up to 6 AM 03/14/19 06:00 Intake Total 1990 ml Output Total 1500 ml Balance 490 ml Laboratory Data 24H LABS Laboratory Tests 2 03/14/19 06:16: Immature Granulocyte % (Auto) 2.2, Neutrophils (%) (Auto) 75.4H, Lymphocytes (%) (Auto) 13.6L, Monocytes (%) (Auto) 8.5H, Eosinophils (%) (Auto) 0.0, Basophils (%) (Auto) 0.3, Neutrophils # (Auto) 7.4, Lymphocytes # (Auto) 1.3L, Monocytes # (Auto) 0.8, Eosinophils # (Auto) 0.0, Basophils # (Auto) 0.0, Nucleated Red Blood Cells % (auto) 0.0, Anion Gap 7L, Glomerular Filtration Rate > 60.0, Calcium Level 8.1L, Total Bilirubin 0.7, Aspartate Amino Transf (AST/SGOT) 12, Alanine Aminotransferase (ALT/SGPT) 33, Alkaline Phosphatase 70, Total Protein 6.3L, Albumin 2.2L, Albumin/Globulin Ratio 0.54L CBC/BMP Laboratory Tests 03/14/19 06:16 Microbiology Microbiology 03/12/19 Gram Stain - Final, Resulted 03/12/19 Abscess Culture, Resulted Pending 03/12/19 Anaerobic Culture, Resulted Pending 03/12/19 Gram Stain - Final, Resulted 03/12/19 Abscess Culture - Final, Resulted 03/12/19 Anaerobic Culture, Resulted Pending 03/10/19 Blood Culture - Preliminary, Resulted No Growth after 72 hours. All specime... 03/10/19 Blood Culture - Preliminary, Resulted No Growth after 72 hours. All specime... RUPERT RUEDA MD Mar 14, 2019 09:22
[2019-03-14] MEDS: PERCOCET 5MG/325MG TAB PO PRN ×2 (12:04→18:58)
[2019-03-14] MEDS ORDERED: MOM 30ML SUSPENSION UDC PO ONE (14:00)
[2019-03-14 16:00] VITALS: BP 122/62
--- NOTE | 2019-03-14 17:05 | IPN ---
DATE: 03/14/2019 SUBJECTIVE: The patient is postoperative day #2 status post incision and drainage of right peritonsillar abscess and needle aspiration of neck with no obvious abscess of the neck. The patient still is concerned about the swelling in the right side of the neck. She also apparently did spit up a little bit of blood late at night and she also had some pain late at night. She is not currently having that significant pain that she had last night. OBJECTIVE: She has been afebrile for the past 24 hours and currently is 98.4 degrees Fahrenheit, blood pressure is 120/58, pulse oximetry is 96% on room air. Posterior oropharynx shows there still is a little bit of exudative drainage from the right incision and drainage site of the peritonsillar abscess. The uvula is going closer to midline. There is much more of an open posterior airway than 2 days ago and continues to improve. Neck reveals still some swelling in the soft tissue, mild induration, although appears to be somewhat softer today but still present, slightly decreased but not significantly decreased. Her white count is significantly decreased and now is within normal range 9.8. She has no further bands present. Hematocrit 37.3. Cultures and sensitivities are still pending. She did have on Gram stain many gram-positive cocci in pairs and chains, many gram-negative rods and moderate gram-positive rods. Ceftazidime was added yesterday on top of her IV clindamycin. CT scan of the neck with contrast performed on 03/13/2019 reveals findings consistent with continued evidence for right sided submandibular sialadenitis with surrounding soft tissue swelling extending into the right side of the oropharynx and parapharyngeal space similar to prior examination. New foci of gas consistent with recent incision and drainage. No obvious discrete residual drainable collection is identified. Airway remains patent but should be correlated with physical examination as mass effect along the right side is noted. IMPRESSION: Status post incision and drainage right peritonsillar abscess postoperative day #2 along with sialadenitis. Findings of Gram stain with gram-negative rods which would not be covered by the clindamycin. Ceftazidime was added. Clinically the patient is improving, albeit slowly. PLAN: At this point would be to continue with the current antibiotics IV until cultures and sensitivities have been obtained and then would consider changing to by mouth antibiotics once we have sensitivities. We did talk to the mother about the possibility of a quinolone such as Levaquin but there is also increased risk of tendon rupture but we will see what oral antibiotics she is sensitive to. Would suspect she would continue with clindamycin and potentially another gram-negative mervin antibacterial coverage depending upon the sensitivities. Will have her start a mechanical soft diet today and will reassess her tomorrow.
[2019-03-14 20:00] VITALS: BP 111/63
[2019-03-15] VITALS: BP 114/59
[2019-03-15] MEDS: CLINDAMYCIN 600 MG in IV 1 EA IV SCH ×4 (04:08→21:45)
[2019-03-15 04:15] VITALS: BP 116/59
[2019-03-15] MEDS: PERCOCET 5MG/325MG TAB PO PRN ×3 (04:16→23:59)
[2019-03-15 07:04] LABS: BASO # 0.1 10^3/uL (0.0-0.2); BASO % 0.5 % (0.0-1.0); EOS # 0.1 10^3/uL (0.0-0.5); EOS % 0.8 % (0.0-3.0); HEMATOCRIT 36.6 % (36.0-47.0); LYMPH # 2.9 10^3/uL (1.5-5.0); LYMPH % 27.8 % (24.0-44.0); MEAN CORPUSCULAR HEMOGLOBIN 30.1 pg (27.0-33.0); MEAN CORPUSCULAR HGB CONC 32.8 g/dl (32.0-36.5); MEAN CORPUSCULAR VOLUME 91.7 fl (80.0-96.0); MONO # 0.9 10^3/uL (0.0-0.8); MONO % 8.7 % (0.0-5.0); NEUTROPHILS % 57.2 % (36.0-66.0); PLATELET COUNT, AUTOMATED 230 10^3/uL (150-450); RED BLOOD COUNT 3.99 10^6/uL (4.00-5.40); WHITE BLOOD COUNT 10.5 10^3/uL (4.0-10.0)
[2019-03-15 07:33] LABS: ALT/SGPT 24 U/L (12-78); BILIRUBIN,TOTAL 0.7 MG/DL (0.2-1.0); BLOOD UREA NITROGEN 19 MG/DL (7-18); CALCIUM LEVEL 8.3 MG/DL (8.5-10.1); CARBON DIOXIDE LEVEL 27 MEQ/L (21-32); CHLORIDE LEVEL 103 MEQ/L (98-107); CREATININE FOR GFR 0.66 MG/DL (0.55-1.30); GLOMERULAR FILTRATION RATE > 60.0 (>60); GLUCOSE, FASTING 91 MG/DL (70-100); POTASSIUM SERUM 3.6 MEQ/L (3.5-5.1); SODIUM LEVEL 138 MEQ/L (136-145); TOTAL PROTEIN 6.2 GM/DL (6.4-8.2)
[2019-03-15 08:00] VITALS: BP 117/72
[2019-03-15] MEDS: cefTAZidime 1 GM in D5W MINI-BAG PLUS 50 ML IV SCH ×3 (08:18→23:12)
[2019-03-15] MEDS: busPIRone 10 MG TAB PO SCH ×2 (08:19→21:45)
[2019-03-15] MEDS: FLUoxetine 20 MG CAP PO SCH (08:19)
[2019-03-15] MEDS ORDERED: predniSONE 20 MG TAB PO SCH (09:00)
--- NOTE | 2019-03-15 10:18 | IPNPDOC ---
Subjective Date Seen The patient was seen on 03/15/19. Subjective Chief Complaint/HPI Patient's swelling is slightly decreased. Still complaining of pain at the right face and neck General: Denies: ROS Unobtainable, Chills, Night Sweats, Fatigue, Malaise, Normal Appetite, Other Symptoms ENT: Reports: Other Symptoms (swelling, right side of face and neck) Skin: Denies: Rash, Lesions, Jaundice, Bruising, Itching, Dry, Breakdown, Nail Changes, Other Pulmonary: Denies: Dyspnea, Cough, Pleuritic Chest Pain, Other Symptoms Cardiovascular: Denies: Chest Pain, Palpitations, Orthopnea, Paroxysmal Noc. Dyspnea, Edema, Lt Headedness, Other Symptoms Gastrointestinal: Denies: Nausea, Vomiting, Abdominal Pain, Diarrhea, Constipation, Melena, Hematochezia, Other Symptoms Musculoskeletal: Denies: Neck Pain, Back Pain, Shoulder Pain, Arm Pain, Hand Pain, Leg Pain, Foot Pain, Joint Pain, Muscle Pain, Spasms, Other Symptoms Neurological: Denies: Weakness, Numbness, Incoordination, Change in speech, Confusion, Seizures, Other Symptoms Objective Physical Examination General Exam: Positive: Alert, Cooperative Eye Exam: Positive: PERRLA, Conjunctiva & lids normal ENT Exam: Positive: Other ENT (. Positive swelling right side of face and neck below the mandible decreased tenderness) Chest Exam: Negative: Clear to auscultation, Normal air movement, Rales, Rhonchi, Wheezing, Diminished, Other Heart Exam: Negative: Rate Normal, Tachycardic, Bradycardic, Regular Rhythm, Irregular Rhythm, Normal S1, Normal S2, Gallops, Murmurs, Rubs, Other Abdomen Exam: Negative: Normal bowel sounds, BS Hyperactive, BS Hypoactive, Soft, Tenderness, Hepatospenomegaly, Mass, Hernia, Other Extremity Exam: Negative: Clubbing, Cyanosis, Edema, Normal pulses, Tenderness, Swelling, Other Skin Exam: Negative: Nl turgor and temperature, Rash, Breakdown, Lesion, Pruritus, Other skin issue Neuro Exam: Negative: Normal Gait, Normal Speech, Strength at 5/5 X4 ext, Normal Tone, Sensation Intact, Cranial Nerves 3-12 NL, Reflexes 2+, Other Psych Exam: Positive: Mood NL, Oriented x 3 Assessment /Plan Problems (1) Peritonsillar abscess Status: Acute Problem Text: Peritonsillitis has now formally formed into a peritonsillar abscess Status post I&D by ENT 2 days ago Continue Clinda and ceftazidime WBC count is 10.5 with normal hemoglobin and electrolytes Decreased prednisone to 10 mg by mouth today Awaiting wound cultures and sensitivities pt is clinically improving. We'll continue observing on IV antibiotics ENT follow-up appreciated (2) Sialadenitis Status: Acute Problem Text: Continue present care Plan/VTE VTE Prophylaxis Ordered?: Yes VS, I&O, 24H, Fishbone Vital Signs/I&O Vital Signs Date Time Temp Pulse Resp B/P (MAP) Pulse Ox O2 Delivery O2 Flow Rate FiO2 03/15/19 08:00 98.0 90 17 117/72 (87) 98 Room Air 03/12/19 17:50 1.0 I&O- Last 24 Hours up to 6 AM 03/15/19 06:00 Intake Total 1800 ml Output Total 1260 ml Balance 540 ml Laboratory Data 24H LABS Laboratory Tests 2 03/15/19 06:32: Immature Granulocyte % (Auto) 5.0H, Neutrophils (%) (Auto) 57.2, Lymphocytes (%) (Auto) 27.8, Monocytes (%) (Auto) 8.7H, Eosinophils (%) (Auto) 0.8, Basophils (%) (Auto) 0.5, Neutrophils # (Auto) 6.0, Lymphocytes # (Auto) 2.9, Monocytes # (Auto) 0.9H, Eosinophils # (Auto) 0.1, Basophils # (Auto) 0.1, Nucleated Red Blood Cells % (auto) 0.0, Anion Gap 8, Glomerular Filtration Rate > 60.0, Calcium Level 8.3L, Total Bilirubin 0.7, Aspartate Amino Transf (AST/SGOT) 10, Alanine Aminotransferase (ALT/SGPT) 24, Alkaline Phosphatase 73, Total Protein 6.2L, Albumin 2.0L, Albumin/Globulin Ratio 0.48L CBC/BMP Laboratory Tests 03/15/19 06:32 Microbiology Microbiology 03/12/19 Gram Stain - Final, Resulted 03/12/19 Abscess Culture, Resulted Pending 03/12/19 Anaerobic Culture, Resulted Pending 03/12/19 Gram Stain - Final, Resulted 03/12/19 Abscess Culture - Final, Resulted 03/12/19 Anaerobic Culture, Resulted Pending 03/10/19 Blood Culture - Final, Complete NO GROWTH AFTER 5 DAYS 03/10/19 Blood Culture - Final, Complete NO GROWTH AFTER 5 DAYS RUPERT RUEDA MD Mar 15, 2019 10:18
--- NOTE | 2019-03-15 12:23 | IPN ---
DATE: 03/15/2019 SUBJECTIVE: The patient reports no bleeding last night. She still feels that there is drainage coming from the right peritonsillar incision site. She still feels fullness and swelling in the right side of the neck but no significant pain. She has had no fevers or chills that she is aware of in the past 24 hours. Mother is at the bedside. PHYSICAL EXAMINATION: Currently, temperature is 98.0. She has been afebrile for the last 24 hours blood pressure is 117/72. Oxygen saturations 98% on room air. The patient still has swelling over the right parotid region. There is no fluctuance. There is a slight crepitance present today that was not appreciated yesterday. Posterior oropharynx reveals mild purulent discharge from the incision site. Uvula is becoming closer to midline. She has a good patent airway. Neck reveals no fluctuance. Mild crepitus over the parotid region very minimal. Some swelling right submandibular to the right parotid region. CBC reveals white count is 10.5, neutrophils have dropped down to 57%. CT scan of the neck performed on 03/13/2019 revealed consistent findings with right sided submandibular sialadenitis with surrounding soft tissue swelling extending to the right side of the oropharynx parapharyngeal space. New foci of gas consistent with recent incision and drainage. No obvious discrete residual drainable collection is identified. Microbiology results are pending. I did call the lab which states that there is multiple anaerobes that are waiting to be speciated but they did not plan to do sensitivities even though they were requested. IMPRESSION: Patient status post right peritonsillar abscess incision and drainage with lilli pus continued mild oozing. CT scan done afterwards with residual swelling in the right side of the neck but no further drainable abscess formation. Mild air pockets identified, decreasing white count but still with swelling and cellulitis present. PLAN: The plan at this point is to talk to the primary care physician about obtaining infectious disease consultation as microbiology states that there may be multiple anaerobes that are in the process and they would have not worked on obtaining sensitivities to these at this time. The patient is in no airway distress feeling a little bit better but still has significant swelling in the soft tissue. I have talked to the nurse at approximately 9:45 a.m. to talk with the primary care physician about obtaining infectious disease consultation.
[2019-03-15 16:00] VITALS: BP 111/75
[2019-03-15 20:00] VITALS: BP 123/59
[2019-03-16 00:04] VITALS: BP 139/78
[2019-03-16] MEDS: CLINDAMYCIN 600 MG in IV 1 EA IV SCH ×2 (03:25→08:28)
[2019-03-16] MEDS: PERCOCET 5MG/325MG TAB PO PRN ×3 (06:48→20:49)
[2019-03-16 07:14] LABS: HEMATOCRIT 38.6 % (36.0-47.0); HEMOGLOBIN 12.7 g/dl (12.0-15.5); MEAN CORPUSCULAR HEMOGLOBIN 29.9 pg (27.0-33.0); MEAN CORPUSCULAR HGB CONC 32.9 g/dl (32.0-36.5); MEAN CORPUSCULAR VOLUME 90.8 fl (80.0-96.0); PLATELET COUNT, AUTOMATED 255 10^3/uL (150-450); RED BLOOD COUNT 4.25 10^6/uL (4.00-5.40); WHITE BLOOD COUNT 8.9 10^3/uL (4.0-10.0)
[2019-03-16 07:32] LABS: ATYPICAL LYMPH 7 % (0-5); EOSINOPHILS 1 % (0-3); LYMPHOCYTES 16 % (16-44); MONOCYTES 1 % (0-5); NEUTROPHILS 75 % (28-66); PLATELET ESTIMATE NORMAL (NORMAL)
[2019-03-16 07:39] LABS: ALT/SGPT 23 U/L (12-78); BLOOD UREA NITROGEN 11 MG/DL (7-18); CALCIUM LEVEL 8.5 MG/DL (8.5-10.1); CARBON DIOXIDE LEVEL 30 MEQ/L (21-32); CHLORIDE LEVEL 101 MEQ/L (98-107); CREATININE FOR GFR 0.68 MG/DL (0.55-1.30); GLOMERULAR FILTRATION RATE > 60.0 (>60); GLUCOSE, FASTING 95 MG/DL (70-100); POTASSIUM SERUM 3.7 MEQ/L (3.5-5.1); SODIUM LEVEL 137 MEQ/L (136-145)
[2019-03-16 07:40] LABS: ALBUMIN 2.2 GM/DL (3.2-5.2); BILIRUBIN,TOTAL 0.7 MG/DL (0.2-1.0); TOTAL PROTEIN 6.7 GM/DL (6.4-8.2)
[2019-03-16 08:00] VITALS: BP 130/73
[2019-03-16] MEDS: FLUoxetine 20 MG CAP PO SCH (08:28)
[2019-03-16] MEDS: busPIRone 10 MG TAB PO SCH ×2 (08:28→20:46)
[2019-03-16] MEDS: cefTAZidime 1 GM in D5W MINI-BAG PLUS 50 ML IV SCH (08:29)
[2019-03-16] MEDS ORDERED: predniSONE 10 MG TAB PO SCH (09:00)
--- NOTE | 2019-03-16 10:40 | IPNPDOC ---
Subjective Date Seen The patient was seen on 03/16/19. Subjective Chief Complaint/HPI Patient noted some pus in the saliva but swelling has significantly decreased, ENT is recommending to call ID again, and now. Patient and mother are requesting the ID consult as well General: Denies: ROS Unobtainable, Chills, Night Sweats, Fatigue, Malaise, Normal Appetite, Other Symptoms Constitutional: Denies: Chills, Fever, Malaise, Night Sweats, Weakness, Fatigue, Weight Loss, Lethargy, Other ENT: Reports: Other Symptoms (is still has pain and swelling right side of face and neck) Skin: Reports: Other (. As above) Pulmonary: Denies: Dyspnea, Cough, Pleuritic Chest Pain, Other Symptoms Cardiovascular: Denies: Chest Pain, Palpitations, Orthopnea, Paroxysmal Noc. Dyspnea, Edema, Lt Headedness, Other Symptoms Gastrointestinal: Denies: Nausea, Vomiting, Abdominal Pain, Diarrhea, C onstipation, Melena, Hematochezia, Other Symptoms Musculoskeletal: Denies: Neck Pain, Back Pain, Shoulder Pain, Arm Pain, Hand Pain, Leg Pain, Foot Pain, Joint Pain, Muscle Pain, Spasms, Other Symptoms Neurological: Denies: Weakness, Numbness, Incoordination, Change in speech, Confusion, Seizures, Other Symptoms Objective Physical Examination General Exam: Positive: Alert, Cooperative Eye Exam: Positive: PERRLA, Conjunctiva & lids normal ENT Exam: Positive: Other ENT (. Positive swelling right side of face and neck below the mandible decreased tenderness) Chest Exam: Negative: Clear to auscultation, Normal air movement, Rales, Rhonchi, Wheezing, Diminished, Other Heart Exam: Negative: Rate Normal, Tachycardic, Bradycardic, Regular Rhythm, Irregular Rhythm, Normal S1, Normal S2, Gallops, Murmurs, Rubs, Other Abdomen Exam: Negative: Normal bowel sounds, BS Hyperactive, BS Hypoactive, Soft, Tenderness, Hepatospenomegaly, Mass, Hernia, Other Extremity Exam: Negative: Clubbing, Cyanosis, Edema, Normal pulses, Tenderness, Swelling, Other Skin Exam: Negative: Nl turgor and temperature, Rash, Breakdown, Lesion, Pruritus, Other skin issue Neuro Exam: Negative: Normal Gait, Normal Speech, Strength at 5/5 X4 ext, Normal Tone, Sensation Intact, Cranial Nerves 3-12 NL, Reflexes 2+, Other Psych Exam: Positive: Mood NL, Oriented x 3 Assessment /Plan Problems (1) Peritonsillar abscess Status: Acute Problem Text: Peritonsillitis has now formally formed into a peritonsillar abscess Status post I&D by ENT On Clinda and ceftazidime WBC count is 8.9 DC prednisone Wound cultures are consistent with normal rosa ENT is insisting to get ID consult and now the patient and patient's mother also requesting ID consult call placed in for Dr. Hunt for the infectious disease evaluation Continue present care (2) Sialadenitis Status: Acute Problem Text: Continue present care Plan/VTE VTE Prophylaxis Ordered?: Yes VS, I&O, 24H, Fishbone Vital Signs/I&O Vital Signs Date Time Temp Pulse Resp B/P (MAP) Pulse Ox O2 Delivery O2 Flow Rate FiO2 03/16/19 07:18 16 03/16/19 00:04 98.8 84 139/78 (98) 97 Room Air 03/12/19 17:50 1.0 I&O- Last 24 Hours up to 6 AM 03/16/19 06:00 Intake Total 3480 ml Output Total 2700 ml Balance 780 ml Laboratory Data 24H LABS Laboratory Tests 2 03/16/19 06:59: Immature Granulocyte % (Auto) , Nucleated Red Blood Cells % (auto) 0.0, Neutrophils 75H, Lymphocytes (Manual) 16, Monocytes (Manual) 1, Eosinophils (Manual) 1, Atypical Lymphocytes 7H, Red Blood Cell Morphology NORMAL, Platelet Estimate NORMAL, Anion Gap 6L, Glomerular Filtration Rate > 60.0, Calcium Level 8.5, Total Bilirubin 0.7, Aspartate Amino Transf (AST/SGOT) 12, Alanine Aminotransferase (ALT/SGPT) 23, Alkaline Phosphatase 72, Total Protein 6.7, Albumin 2.2L, Albumin/Globulin Ratio 0.49L CBC/BMP Laboratory Tests 03/16/19 06:59 Microbiology Microbiology 03/12/19 Gram Stain - Final, Resulted 03/12/19 Abscess Culture - Final, Resulted 03/12/19 Anaerobic Culture, Resulted Pending 03/12/19 Gram Stain - Final, Resulted 03/12/19 Abscess Culture - Final, Resulted 03/12/19 Anaerobic Culture, Resulted Pending 03/10/19 Blood Culture - Final, Complete NO GROWTH AFTER 5 DAYS 03/10/19 Blood Culture - Final, Complete NO GROWTH AFTER 5 DAYS RUPERT RUEDA MD Mar 16, 2019 10:40
--- NOTE | 2019-03-16 10:54 | IPN ---
DATE OF SERVICE: 03/16/2019 SUBJECTIVE: The patient without fevers or chills but still has some pain in the right side of the neck. She still reports draining from the peritonsillar incision site. She denies any bleeding. She is feeling okay, not significantly better but a little bit better. Mother is in the room and at the bedside. CURRENT VITAL SIGNS: The patient is afebrile. Temperature is 98.8, blood pressure 139/70, pulse oximetry is 97% on room air. The patient still with obvious swelling of the right neck region. On oral examination, incision and drainage shows lilli purulent discharge from the incision and drainage site. Uvula is getting closer to midline, however, the patient has a widely patent airway. The right parotid region has some mild crepitance present about the same as yesterday. No obvious abscess formation in this area at this time. No erythema overlying the skin. The patient is currently on clindamycin and ceftazidime. IMPRESSION: Is the patient status post incision and drainage of peritonsillar abscess with continued cellulitis of the right side of the neck. She has Gram stain that had gram-positive cocci, gram-positive rods, and gram-negative rods. After Gram stain was obtained, ceftazidime was added to the clindamycin. The patient has had progressive purulent discharge from the incision and drainage site, clinically improved with white count down to the normal range, down from 14.2 down to 8.9, but still culture is pending from anaerobic, and also continued purulent drainage from the right incision and drainage site. I have called to obtain cultures, which have not been identified. I have requested sensitivities, which I was told by the lab that they have to send them out, and I have also recommended yesterday as well as today to have infectious disease consult as the patient is clearly not improving with the intravenous (IV) antibiotic therapy to a satisfactory condition, although the white count is coming down and the airway is controlled, there still appears to be an organism that may be resistant, and I do not believe this patient is ready for discharge. I have voiced my concerns to the patient, as well as to the nurse. ALEJANDRA
[2019-03-16 16:00] VITALS: BP 128/78
[2019-03-16 16:43] LABS: MONO REFLEX EBV COMP POSITIVE (NEGATIVE)
[2019-03-16] MEDS: PIPERACILLIN/TAZOBACTAM SOD 3.375 GM in D5W MINI-BAG PLUS 50 ML IV SCH ×2 (18:03→23:13)
[2019-03-16 20:00] VITALS: BP 124/85
--- NOTE | 2019-03-16 22:13 | CR ---
DATE OF CONSULTATION: 03/16/2019 INFECTIOUS DISEASE CONSULTATION Asked to consult by hospitalist and Ears, Nose and Throat (ENT) for evaluation of severe sore throat with peritonsillar abscess on the right side. HISTORY OF PRESENT ILLNESS: Ayah is a 28-year-old obese white female who presented to the hospital on 03/08/2019 with complaints of severe sore throat associated with a fever. The patient received some clindamycin, came back the next day without any improvement and was hospitalized on 03/10/2019 with a diagnosis of a peritonsillar abscess. She was started on IV clindamycin, which she has received for the past 7 days with minimal improvement. On 03/13/2019, ceftazidime was added for gram-negative coverage. The patient did not have any known fever or chills after the initial fevers. She did not have nausea, vomiting or diarrhea. No abdominal pain. No elevated liver profile. There was concern about obstruction and worsening right peritonsillar abscess that she went to the operating room with Dr. De La Rosa and had an incision and drainage (I and D). There was a large amount of pus that was drained intraoperatively and preoperatively after she coughed. They tried to also drain the neck from the outside, but they could not obtain anything through the neck incision and drainage. Patient's mother is concerned as there is still significant swelling, and there was concern about her discharge today. PAST MEDICAL HISTORY: Significant for migraine headache and depression, and morbid obesity. PAST SURGICAL HISTORY: Bilateral knee surgery and oral surgery. ALLERGIES: No known drug allergies. MEDICATIONS: Prednisone 10 mg today, but she had been on a tapering schedule and had received Decadron. Ceftazidime 1 gram IV every 8 hours, clindamycin 600 mg IV every 6 hours, currently day #7 and ceftazidime day #4. Percocet 1-2 tablets every 6 hours as needed. REVIEW OF SYSTEMS: She had a low grade fever a week ago. They have not recurred. She has severe sore throat, difficulty swallowing. No nausea, vomiting or diarrhea. No abdominal pain. No chest pain or shortness of breath. LABORATORY: White count is 8.9, hemoglobin 12.7, hematocrit 38.6, platelets 255. Sodium 137, potassium 3.7, chloride 101, bicarbonate 30, BUN 11, creatinine 0.68, glucose 95, calcium 8.5, AST 12, ALT 23, alkaline phosphatase 72, albumin 2.2. Differential on CBC shows 7% atypical lymphocytes, 75% neutrophils. Blood cultures, two sets, done on 03/10/2019 were no growth. Peritonsillar abscess on 03/12/2019, two are still pending. Cultures had strep, alpha strep and a few anaerobes that have to be identified. Neck CT done on 03/10/2019 and 03/13/2019 showed adenopathy with concern of right- sided submandibular sialoadenitis and right peritonsillar abscess. Airways were patent. There is mass effect along with moderate contralateral shift to the airway through the oropharynx extending to the right parapharyngeal region. On physical exam, she is a pleasant female in no acute distress. Temperature is 98.8, and she has been afebrile throughout this admission, pulse 84, respirations 18, blood pressure 139/78, oxygen saturation (O2 sat) 97% on room air. Heart: Normal S1, S2. No murmurs, rubs, or gallops. Lungs are clear. No wheezes, rales or rhonchi. Abdomen: Morbidly obese, soft, nontender. Extremities: No clubbing, cyanosis or edema. Neck: Severe right neck swelling with induration in the submandibular area. Oropharynx shows tonsillar enlargement, but I had a limited view due to difficulty with opening her mouth, but there is definite purulent drainage from the right peritonsillar abscess. Neck is supple with no stiffness. IMPRESSION: This is a 28-year-old female who was admitted with a right peritonsillar abscess. In the setting of atypical lymphocytes, I suspect the patient had acute infectious mononucleosis complicated by a peritonsillar abscess. She has been on IV clindamycin for 7 days along with ceftazidime with cultures that are growing anaerobes. The clindamycin may not be covering all the anaerobic infection, and therefore, I have opted to broaden her anaerobic coverage with Zosyn. Some of the swelling also may take longer to resolve as she has underlying infectious mononucleosis as well since her mononucleosis screen was positive. PLAN: Discontinue IV ceftazidime and clindamycin, switch to IV Zosyn 3.375 grams every 6 hours. EBV, comprehensive profile has been added, HIV testing was ordered as well. Family informed. Case discussed with Dr. Lizarraga. Her mother was at the bedside, who is a fabrication welder at [employer].
[2019-03-17 05:00] VITALS: BP 126/78
[2019-03-17] MEDS: PIPERACILLIN/TAZOBACTAM SOD 3.375 GM in D5W MINI-BAG PLUS 50 ML IV SCH ×4 (05:20→22:19)
[2019-03-17 08:00] VITALS: BP 131/88
[2019-03-17 08:10] LABS: HEMATOCRIT 37.5 % (36.0-47.0); HEMOGLOBIN 12.5 g/dl (12.0-15.5); MEAN CORPUSCULAR HEMOGLOBIN 30.2 pg (27.0-33.0); MEAN CORPUSCULAR HGB CONC 33.3 g/dl (32.0-36.5); MEAN CORPUSCULAR VOLUME 90.6 fl (80.0-96.0); PLATELET COUNT, AUTOMATED 258 10^3/uL (150-450); RED BLOOD COUNT 4.14 10^6/uL (4.00-5.40); WHITE BLOOD COUNT 9.2 10^3/uL (4.0-10.0)
[2019-03-17 08:38] LABS: ALBUMIN 2.1 GM/DL (3.2-5.2); ALT/SGPT 19 U/L (12-78); BILIRUBIN,TOTAL 0.9 MG/DL (0.2-1.0); BLOOD UREA NITROGEN 15 MG/DL (7-18); CARBON DIOXIDE LEVEL 30 MEQ/L (21-32); CHLORIDE LEVEL 101 MEQ/L (98-107); CREATININE FOR GFR 0.78 MG/DL (0.55-1.30); GLOMERULAR FILTRATION RATE > 60.0 (>60); GLUCOSE, FASTING 102 MG/DL (70-100); SODIUM LEVEL 137 MEQ/L (136-145); TOTAL PROTEIN 6.6 GM/DL (6.4-8.2)
[2019-03-17 08:43] LABS: ATYPICAL LYMPH 2 % (0-5); EOSINOPHILS 4 % (0-3); LYMPHOCYTES 25 % (16-44); METAMYELOCYTES 2 % (0-0); MONOCYTES 5 % (0-5); MYELOCYTES 1 % (0-0); NEUTROPHILS 56 % (28-66)
[2019-03-17 08:44] LABS: PLATELET ESTIMATE NORMAL (NORMAL)
[2019-03-17] MEDS: FLUoxetine 20 MG CAP PO SCH (08:48)
[2019-03-17] MEDS: busPIRone 10 MG TAB PO SCH ×2 (08:48→22:00)
[2019-03-17] MEDS: PERCOCET 5MG/325MG TAB PO PRN ×2 (08:49→17:07)
--- NOTE | 2019-03-17 09:51 | IPN ---
DATE OF SERVICE: 03/17/2019 SUBJECTIVE: The patient feels about the same, maybe slightly better. She was seen by infectious disease doctor, Dr. Hunt, yesterday. She has had no further bleeding. She has had no other significant issues. She does still have some mild pain and moderate swelling on the right side of the neck. OBJECTIVE: Findings: The patient still has obvious swelling on the right side of the neck, less swollen than yesterday. She was changed from intravenous (IV) clindamycin and ceftazidime to IV Zosyn, which she started yesterday. She continues to be afebrile. Temperature 97.7. She still has some mild trismus present. Intraoral examination shows some purulent discharge from the incision and drainage of the right peritonsillar abscess but less than yesterday. There still is tenderness to the right parotid/submandibular region. No obvious abscess formation has been identified. Her white count today is 9.2. Neutrophils have come down significantly, down to 56. She had a mononucleosis screen test that was positive. HIV test is pending. IMPRESSION: Is patient postoperative day #4, status post incision and drainage right peritonsillar abscess. Initially had no further drainage; but then as the days progressed postoperatively, she had more purulent drainage even though she was on IV clindamycin and ceftazidime; and previously prior to that, she had been on Augmentin by mouth prior to coming into the hospital. Infectious disease consult is appreciated. PLAN: Clindamycin and ceftazidime were discontinued, and IV Zosyn 3.375 grams every 6 hours was started yesterday. EBV comprehensive profile had been added, as well as HIV testing was performed. I did call microbiology laboratory again today. Again, no speciation has been completed. I was told that by tomorrow the cultures should have been identified. There are potentially three anaerobic organisms that have been identified. Will defer IV management to infectious disease doctor currently. No indications for repeat surgery at this time unless she develops more problems. Will continue to follow. ALEJANDRA
--- NOTE | 2019-03-17 10:48 | IPNPDOC ---
Subjective Date Seen The patient was seen on 03/17/19. Subjective Chief Complaint/HPI Patient is still has pain and swelling and swelling not decreased on the right face and neck General: Denies: ROS Unobtainable, Chills, Night Sweats, Fatigue, Malaise, Normal Appetite, Other Symptoms ENT: Reports: Other Symptoms Pulmonary: Denies: Dyspnea, Cough, Pleuritic Chest Pain, Other Symptoms Cardiovascular: Denies: Chest Pain, Palpitations, Orthopnea, Paroxysmal Noc. Dyspnea, Edema, Lt Headedness, Other Symptoms Gastrointestinal: Denies: Nausea, Vomiting, Abdominal Pain, Diarrhea, Constipation, Melena, Hematochezia, Other Symptoms Hematologic: Denies: Bruising, Bleeding Excessively, Petecchia, Purpura, Enlarged Lymph Nodes, Other Hematologic Endocrine: Denies: Polydipsia, Polyphagia, Polyuria, Heat Intolerance, Cold Intolerance, Other Endocrine Sx Musculoskeletal: Denies: Neck Pain, Back Pain, Shoulder Pain, Arm Pain, Hand Pain, Leg Pain, Foot Pain, Joint Pain, Muscle Pain, Spasms, Other Symptoms Neurological: Denies: Weakness, Numbness, Incoordination, Change in speech, Confusion, Seizures, Other Symptoms Objective Physical Examination General Exam: Positive: Alert, Cooperative Eye Exam: Positive: PERRLA, Conjunctiva & lids normal ENT Exam: Positive: Other ENT (. Positive swelling right side of face and neck below the mandible decreased tenderness) Chest Exam: Negative: Clear to auscultation, Normal air movement, Rales, Rhonchi, Wheezing, Diminished, Other Heart Exam: Negative: Rate Normal, Tachycardic, Bradycardic, Regular Rhythm, Irregular Rhythm, Normal S1, Normal S2, Gallops, Murmurs, Rubs, Other Abdomen Exam: Negative: Normal bowel sounds, BS Hyperactive, BS Hypoactive, Soft, Tenderness, Hepatospenomegaly, Mass, Hernia, Other Extremity Exam: Negative: Clubbing, Cyanosis, Edema, Normal pulses, Tenderness, Swelling, Other Skin Exam: Negative: Nl turgor and temperature, Rash, Breakdown, Lesion, Pruritus, Other skin issue Neuro Exam: Negative: Normal Gait, Normal Speech, Strength at 5/5 X4 ext, Normal Tone, Sensation Intact, Cranial Nerves 3-12 NL, Reflexes 2+, Other Psych Exam: Positive: Mood NL, Oriented x 3 Assessment /Plan Problems (1) Peritonsillar abscess Status: Acute Problem Text: Peritonsillitis has now formally formed into a peritonsillar abscess Status post I&D by ENT ID consult appreciated. Discussed with Dr. zuleta Started on Zosyn for better anaerobic coverage Anaerobic cultures still pending Wound cultures are consistent with normal [place] ENT follow-up appreciated (2) Sialadenitis Status: Acute Problem Text: Continue present care Plan/VTE VTE Prophylaxis Ordered?: Yes VS, I&O, 24H, Fishbone Vital Signs/I&O Vital Signs Date Time Temp Pulse Resp B/P (MAP) Pulse Ox O2 Delivery O2 Flow Rate FiO2 03/17/19 08:49 18 Room Air 03/17/19 08:00 96.8 91 131/88 (102) 98 03/12/19 17:50 1.0 I&O- Last 24 Hours up to 6 AM 03/17/19 06:00 Intake Total 2210 ml Output Total 3700 ml Balance -1490 ml Laboratory Data 24H LABS Laboratory Tests 2 03/16/19 15:46: Monoscreen POSITIVEA 03/17/19 05:18: Methicillin-Resist S.aureus DNA PCR NOT DETECTED 03/17/19 07:44: Immature Granulocyte % (Auto) , Nucleated Red Blood Cells % (auto) 0.0, Neutrophils 56, Band Neutrophils 5, Lymphocytes (Manual) 25, Monocytes (Manual) 5, Eosinophils (Manual) 4H, Metamyelocytes 2H, Myelocytes 1H, Atypical Lymphocytes 2, Platelet Estimate NORMAL, Anion Gap 6L, Glomerular Filtration Rate > 60.0, Calcium Level 9.0, Total Bilirubin 0.9, Aspartate Amino Transf (AST/SGOT) 9, Alanine Aminotransferase (ALT/SGPT) 19, Alkaline Phosphatase 66, Total Protein 6.6, Albumin 2.1L, Albumin/Globulin Ratio 0.47L, HIV Antigen/Antibody Combo Qual NEGATIVE CBC/BMP Laboratory Tests 03/17/19 07:44 Microbiology Microbiology 03/12/19 Gram Stain - Final, Resulted 03/12/19 Abscess Culture - Final, Resulted 03/12/19 Anaerobic Culture, Resulted Pending 03/12/19 Gram Stain - Final, Resulted 03/12/19 Abscess Culture - Final, Resulted 03/12/19 Anaerobic Culture, Resulted Pending 03/10/19 Blood Culture - Final, Complete NO GROWTH AFTER 5 DAYS 03/10/19 Blood Culture - Final, Complete NO GROWTH AFTER 5 DAYS RUPERT RUEDA MD Mar 17, 2019 10:48
[2019-03-17 16:00] VITALS: BP 136/79
[2019-03-17 20:00] VITALS: BP 126/70
[2019-03-18] VITALS: BP 121/77
[2019-03-18] MEDS: PERCOCET 5MG/325MG TAB PO PRN ×3 (03:58→22:12)
[2019-03-18 04:00] VITALS: BP 114/62
[2019-03-18] MEDS: PIPERACILLIN/TAZOBACTAM SOD 3.375 GM in D5W MINI-BAG PLUS 50 ML IV SCH ×2 (05:49→11:40)
[2019-03-18 08:00] VITALS: BP 111/74
[2019-03-18 08:53] LABS: HEMATOCRIT 39.5 % (36.0-47.0); HEMOGLOBIN 13.1 g/dl (12.0-15.5); MEAN CORPUSCULAR HGB CONC 33.2 g/dl (32.0-36.5); MEAN CORPUSCULAR VOLUME 90.6 fl (80.0-96.0); PLATELET COUNT, AUTOMATED 289 10^3/uL (150-450); RED BLOOD COUNT 4.36 10^6/uL (4.00-5.40); WHITE BLOOD COUNT 10.5 10^3/uL (4.0-10.0)
[2019-03-18 09:23] LABS: BLOOD UREA NITROGEN 10 MG/DL (7-18); CALCIUM LEVEL 9.1 MG/DL (8.5-10.1); CARBON DIOXIDE LEVEL 29 MEQ/L (21-32); CHLORIDE LEVEL 102 MEQ/L (98-107); CREATININE FOR GFR 0.72 MG/DL (0.55-1.30); GLOMERULAR FILTRATION RATE > 60.0 (>60); GLUCOSE, FASTING 95 MG/DL (70-100); POTASSIUM SERUM 4.8 MEQ/L (3.5-5.1); SODIUM LEVEL 135 MEQ/L (136-145)
--- NOTE | 2019-03-18 10:03 | IPNPDOC ---
Subjective Date Seen The patient was seen on 03/18/19. Subjective Chief Complaint/HPI Patient is comfortable in no apparent distress. Has some rash on the face but no itching General: Denies: ROS Unobtainable, Chills, Night Sweats, Fatigue, Malaise, Normal Appetite, Other Symptoms Constitutional: Denies: Chills, Fever, Malaise, Night Sweats, Weakness, Fatigue, Weight Loss, Lethargy, Other Skin: Reports: Other (rash on face, mostly on right second) Pulmonary: Denies: Dyspnea, Cough, Pleuritic Chest Pain, Other Symptoms Cardiovascular: Denies: Chest Pain, Palpitations, Orthopnea, Paroxysmal Noc. Dyspnea, Edema, Lt Headedness, Other Symptoms Gastrointestinal: Denies: Nausea, Vomiting, Abdominal Pain, Diarrhea, Constipation, Melena, Hematochezia, Other Symptoms Musculoskeletal: Denies: Neck Pain, Back Pain, Shoulder Pain, Arm Pain, Hand Pain, Leg Pain, Foot Pain, Joint Pain, Muscle Pain, Spasms, Other Symptoms Neurological: Denies: Weakness, Numbness, Incoordination, Change in speech, Confusion, Seizures, Other Symptoms Objective Physical Examination ENT Exam: Positive: Other ENT (. Positive swelling right side of face and neck below the mandible decreased tenderness) Neck Exam: Positive: Supple, JVD Chest Exam: Positive: Clear to auscultation, Normal air movement Heart Exam: Positive: Rate Normal, Normal S1, Normal S2 Abdomen Exam: Positive: Normal bowel sounds, Soft Skin Exam: Positive: Other skin issue (punctate rash on the right side of face, but no pustules or vesicles) Psych Exam: Positive: Mood NL, Oriented x 3 Assessment /Plan Problems (1) Peritonsillar abscess Status: Acute Problem Text: Peritonsillar abscess status post I&D Patient is currently on Zosyn by infectious disease CBC, CMP are pending today, but leukocytosis has resolved Further recommendation as per ENT and ID (2) Sialadenitis Status: Acute Problem Text: Local care as per ENT (3) Infectious mononucleosis Status: Acute Problem Text: Supportive care Plan/VTE VTE Prophylaxis Ordered?: Yes VS, I&O, 24H, Fishbone Vital Signs/I&O Vital Signs Date Time Temp Pulse Resp B/P (MAP) Pulse Ox O2 Delivery O2 Flow Rate FiO2 03/18/19 08:00 97.5 76 16 111/74 (86) 100 Room Air 03/12/19 17:50 1.0 I&O- Last 24 Hours up to 6 AM 03/18/19 06:00 Intake Total 2310 ml Output Total 2350 ml Balance -40 ml Laboratory Data 24H LABS Laboratory Tests 2 03/18/19 08:26: Nucleated Red Blood Cells % (auto) 0.0, Anion Gap 4L, Glomerular Filtration Rate > 60.0, Calcium Level 9.1 CBC/BMP Laboratory Tests 03/18/19 08:26 Microbiology Microbiology 03/12/19 Gram Stain - Final, Resulted 03/12/19 Abscess Culture - Final, Resulted 03/12/19 Anaerobic Culture, Resulted Pending 03/12/19 Gram Stain - Final, Complete 03/12/19 Abscess Culture - Final, Complete 03/12/19 Anaerobic Culture - Final, Complete Prevotella Melaninogenica Fusobacterium Varium 03/10/19 Blood Culture - Final, Complete NO GROWTH AFTER 5 DAYS 03/10/19 Blood Culture - Final, Complete NO GROWTH AFTER 5 DAYS RUPERT RUEDA MD Mar 18, 2019 10:03
[2019-03-18] MEDS ORDERED: ISOVUE-370 76% 100ML VIAL (Q9967) As Ordered ONE (10:04)
[2019-03-18] MEDS: FLUoxetine 20 MG CAP PO SCH (10:36)
[2019-03-18] MEDS: busPIRone 10 MG TAB PO SCH ×2 (10:37→21:13)
--- NOTE | 2019-03-18 11:05 | REP ---
CT neck soft tissues: 03/18/2019. Indication: Infection. Abscess. Comparison: 03/13/2019. Technique: Axial images of the neck soft tissues were obtained following 75 ml of IV Isovue 370 with coronal and sagittal reconstructions provided. Findings: Ill-defined residual fluid is noted within the right neck soft tissues predominantly in the submandibular region that extends to the level of the inferior aspect of the hyoid bone and superiorly into the right nasopharyngeal and oral pharyngeal mucosal spaces. There is no significant fluid within the floor of mouth. Fluid extends through the parapharyngeal spaces well and there is mild edema within the retropharyngeal space particularly on the right. There is no significant compromise of the extracranial carotid or vertebral arteries. No significant intraocular, intraorbital or intracranial abnormalities are detected. Likely reactive lymph nodes are present. None of which are pathologic by size or morphologic criteria. Impression: Persistent multicompartment ill-defined postprocedural fluid collection of the right neck soft tissues as described without adjacent osseous erosion or significant compromise of the airway. Electronically Signed by Rohan Greer DO 03/18/2019 10:56 A
[2019-03-18 12:16] LABS: C REACTIVE PROTEIN QUANTITATIV 2.31 MG/DL (0.00-0.30)
--- NOTE | 2019-03-18 13:25 | IPN ---
DATE: 03/18/2019 SUBJECTIVE: The patient had a little bit of a fever last night. She still has some soreness in the right side of the neck. Yesterday evening, she started developing some redness which she thought was a rash over the right side of the neck. She still feels purulent drainage coming from the incision and drainage site of the right peritonsillar abscess. She has no airway difficulties. She does have some tenderness still in the right neck region. EXAMINATION: Vital Signs: She did have a little bit of a fever last night of 99.2. She is back down to 97.5. Blood pressure 111/74. She has new erythema overlying the right side of the neck and the right parotid submandibular region going close to the clavicle which was not there yesterday. There is tenderness in the right neck region. She is able to open up the oral cavity, but still has some interincisal trismus of approximately 2 cm. There is purulent drainage coming from the right peritonsillar region. Her white count is slightly increased from yesterday, it is now 10.5. Hemoglobin is 13.1, hematocrit is 39.5 and platelet count is 289,000. Because of the new onset erythema and slight increase in temperature and slight increase of her WBC, I did order a CT scan of the neck which was done on 03/18/2019 and reveals ill-defined residual fluid is noted within the right neck soft tissue predominantly in the right submandibular region that extends to the level of the inferior aspect of the hyoid bone and superior to the right nasopharyngeal and oropharyngeal mucosal spaces. There is no significant fluid within the floor of the mouth. The fluid extends through the parapharyngeal space and there is mild edema within the retropharyngeal space particularly on the right side. There is no significant compromise of the extra cranial, carotid or paratubal arteries. Likely reactive lymph nodes are present. IMPRESSION: Persistent multi compartmental ill-defined postprocedural fluid collection of the right neck. Soft tissue as described without adjacent osseous erosion or significant compromise of the airway. The patient is still receiving Zosyn since 03/16/2019. Patient with new onset of erythema overlying the right side of the neck and going down the neck with continued purulent discharge. Repeat CT scan shows potentially multilocular regions that may be developing into possibly another abscess formation in the neck. PLAN: At this point, I have discussed the case with the patient and the mother and would recommend taking the patient back to the OR tomorrow morning. We have found a time for 7:30 a.m. She will be consented for right incision and drainage of neck abscess as well as right peritonsillar abscess and possible tracheotomy. We did talk about the risk to the ramus mandibular nerve and inability to potentially frown which may be permanent, the risk of bleeding, further need for future surgeries, the need to place drains, as well as, scar formation. She understands. Mother is present at the time of consent and understands the need and wishes to proceed. The patient will be n.p.o. after midnight. We also talked about the possibility of tracheotomy if there is difficulty getting the airway, which we had talked about the last time, and were able to avoid At this point, she wishes to proceed. We will also repeat cultures as well. ALEJANDRA
[2019-03-18 16:00] VITALS: BP 122/74
[2019-03-18] MEDS ORDERED: diphenhydrAMINE 50 MG CAP PO PRN (18:00)
--- NOTE | 2019-03-18 18:08 | IPN ---
DATE: 03/18/2019 Ayah is complaining of increased swelling around her right neck with a diffuse maculopapular rash which is more prominent in the neck area but also involving her whole body. It is slightly pruritic. She has had no fever or chills. Maximum temperature (T-max) was 99.2 today, pulse 86, respirations 16, blood pressure 122/74, oxygen saturation 99% on room air. HEART: Normal S1, S2 with no murmurs, rubs or gallops. LUNGS: Clear. No wheezes, rales, or rhonchi. ABDOMEN: Morbidly obese, soft, nontender. EXTREMITIES: No edema. SKIN: Diffuse maculopapular rash involving the chest, face, back, a lesser rash on lower extremities. NECK: Very enlarged tonsils with purulent drainage on the right tonsil that is enlarged. Large adenopathy in the right neck area with submandibular swelling. LABORATORY DATA: White count is 10.5, hemoglobin 13.1, hematocrit 39.5, platelets 289. Sodium 135, potassium 4.8, chloride 102, bicarbonate 29, BUN 10, creatinine 0.7, glucose 95, calcium 9.1, CRP 2.31. Peritonsillar culture has Prevotella and Fusobacterium varium. Blood cultures, two sets are negative. IMPRESSION: 1. Peritonsillar abscess, worsening on CAT scan. The patient is scheduled to go to the operating room (OR) for further drainage tomorrow. She has a multicompartmental, ill-defined collection of the right neck soft tissues, fluid extending from the parapharyngeal spaces. There is mild edema of the retropharyngeal space but no significant airway compromise. There is reactive adenopathy. 2. Infectious mononucleosis. 3. Penicillin rash, possibly related to the fact that she got penicillin in the setting of infectious mononucleosis. PLAN: Discontinue IV Zosyn, switch to meropenem 1 gram IV every eight hours, Benadryl 50 mg by mouth every six hours as needed for itching. The patient is to go to the operating room (OR) tomorrow.
[2019-03-18] MEDS: MEROPENEM INJ 1 GM in IV 1 EA IV SCH (19:44)
[2019-03-18 20:00] VITALS: BP 117/72
[2019-03-19] VITALS (7 sets, daily range): BP systolic 120–132; BP diastolic 72–78
[2019-03-19] MEDS: MEROPENEM INJ 1 GM in IV 1 EA IV SCH ×3 (03:52→19:08)
[2019-03-19] MEDS ORDERED: METHYLENE BLUE 0.5% (5MG/ML) 10 ML AMP (PROVAYBLUE)(Q9968 PER 1MG) As Ordered ONE (07:07)
[2019-03-19] MEDS ORDERED: PHENYLEPHRINE 0.5% NASAL SPRAY 15 ML As Ordered ONE (07:07)
[2019-03-19] MEDS ORDERED: MIDAZOLAM INJ 2 MG/2 ML VIAL (J2250) As Ordered ONE (07:11)
[2019-03-19] MEDS ORDERED: fentaNYL 250 MCG/5 ML INJECTION (J3010) As Ordered ONE (07:11)
[2019-03-19] MEDS ORDERED: ONDANSETRON 4MG/2ML VIAL (J2405) As Ordered ONE (07:11)
[2019-03-19] MEDS ORDERED: dexameTHASONE 4 MG/ML 1ML VIAL (J1100) As Ordered ONE (07:11)
[2019-03-19] MEDS ORDERED: PROPOFOL 200 MG/20 ML VIAL As Ordered ONE (07:12)
[2019-03-19] MEDS ORDERED: LIDOCAINE 2% INJ 100 MG/5 ML SDV (FOR ANES.) As Ordered ONE (07:12)
[2019-03-19] MEDS ORDERED: ROCURONIUM BROMIDE 50 MG/5 ML VIAL As Ordered ONE (07:18)
[2019-03-19] MEDS ORDERED: GLYCOPYRROLATE INJ 0.2 MG/ML 2 ML VIAL As Ordered ONE (07:59)
[2019-03-19] MEDS ORDERED: SCOPOLAMINE 1MG TRANSDERMAL PATCH As Ordered ONE ×2 (08:07→10:10)
[2019-03-19] MEDS ORDERED: CETACAINE SPRAY 5GM As Ordered ONE (08:11)
[2019-03-19] MEDS ORDERED: SCOPOLAMINE 1MG TRANSDERMAL PATCH TOP ONE ×2 (08:30→10:30)
[2019-03-19] MEDS ORDERED: BACITRACIN PWD 50,000 UNITS VIAL As Ordered ONE (08:31)
[2019-03-19] MEDS: LIDOCAINE W/EPINEPHRINE 1% 20ML VIAL As Ordered ONE (08:41)
[2019-03-19] MEDS ORDERED: ACETAMINOPHEN 1000MG 100ML IV BTL (OFIRMEV) (J0131 PER 10MG) As Ordered ONE (08:51)
[2019-03-19] MEDS ORDERED: SUGAMMADEX SODIUM 500 MG/5 ML VIAL (BRIDION) As Ordered ONE (08:54)
[2019-03-19] MEDS ORDERED: BACITRACIN OINT 30GM As Ordered ONE (09:06)
[2019-03-19] MEDS ORDERED: fentaNYL 100 MCG/2 ML INJECTION (J3010) IV PRN (10:30)
[2019-03-19] MEDS ORDERED: LR 1,000 ML IV SCH (10:30)
--- NOTE | 2019-03-19 11:10 | IPNPDOC ---
Subjective Date Seen The patient was seen on 03/19/19. Subjective Chief Complaint/HPI Patient is still complaining of pain and swelling right face and neck is scheduled to go to the OR today for further drainage General: Denies: ROS Unobtainable, Chills, Night Sweats, Fatigue, Malaise, Normal Appetite, Other Symptoms Constitutional: Denies: Chills, Fever, Malaise, Night Sweats, Weakness, Fatigue, Weight Loss, Lethargy, Other ENT: Reports: Other Symptoms (, swelling and pain right side of face and neck) Pulmonary: Denies: Dyspnea, Cough, Pleuritic Chest Pain, Other Symptoms Cardiovascular: Denies: Chest Pain, Palpitations, Orthopnea, Paroxysmal Noc. Dyspnea, Edema, Lt Headedness, Other Symptoms Gastrointestinal: Denies: Nausea, Vomiting, Abdominal Pain, Diarrhea, Constipation, Melena, Hematochezia, Other Symptoms Musculoskeletal: Denies: Neck Pain, Back Pain, Shoulder Pain, Arm Pain, Hand Pain, Leg Pain, Foot Pain, Joint Pain, Muscle Pain, Spasms, Other Symptoms Neurological: Denies: Weakness, Numbness, Incoordination, Change in speech, Confusion, Seizures, Other Symptoms Objective Physical Examination ENT Exam: Positive: Other ENT (. Positive swelling right side of face and neck below the mandible decreased tenderness) Neck Exam: Positive: Supple, JVD Chest Exam: Positive: Clear to auscultation, Normal air movement Heart Exam: Positive: Rate Normal, Normal S1, Normal S2 Abdomen Exam: Positive: Normal bowel sounds, Soft Skin Exam: Positive: Other skin issue (punctate rash on the right side of face, but no pustules or vesicles) Psych Exam: Positive: Mood NL, Oriented x 3 Assessment /Plan Problems (1) Peritonsillar abscess Status: Acute Problem Text: Peritonsillar abscess status post I&D Patient is scheduled to go to the OR today for second I&D ID consult and follow-up appreciated Patient has been started on Merrem with Benadryl Zosyn was stopped secondary to rash on body Further, as per ENT and IDs recommendations (2) Sialadenitis Status: Acute Problem Text: Local care as per ENT (3) Infectious mononucleosis Status: Acute Problem Text: Supportive care Plan/VTE VTE Prophylaxis Ordered?: Yes VS, I&O, 24H, Fishbone Vital Signs/I&O Vital Signs Date Time Temp Pulse Resp B/P (MAP) Pulse Ox O2 Delivery O2 Flow Rate FiO2 03/19/19 10:45 92 18 135/83 (100) 95 Room Air 03/19/19 10:15 97.8 03/19/19 09:45 2 I&O- Last 24 Hours up to 6 AM 03/19/19 05:59 Intake Total 2650 ml Output Total 2600 ml Balance 50 ml Laboratory Data Microbiology Microbiology 03/19/19 Anaerobic Culture, Received Pending 03/19/19 Gram Stain - Final, Resulted 03/19/19 Wound Culture, Resulted Pending 03/19/19 Gram Stain - Final, Resulted 03/19/19 Abscess Culture, Resulted Pending 03/19/19 Anaerobic Culture, Resulted Pending 03/12/19 Gram Stain - Final, Complete 03/12/19 Abscess Culture - Final, Complete 03/12/19 Anaerobic Culture - Final, Complete Prevotella Melaninogenica 03/12/19 Gram Stain - Final, Complete 03/12/19 Abscess Culture - Final, Complete 03/12/19 Anaerobic Culture - Final, Complete Prevotella Melaninogenica Fusobacterium Varium 03/10/19 Blood Culture - Final, Complete NO GROWTH AFTER 5 DAYS 03/10/19 Blood Culture - Final, Complete NO GROWTH AFTER 5 DAYS RUPERT RUEDA MD Mar 19, 2019 11:10
[2019-03-19] MEDS ORDERED: BACITRACIN OINT 30GM TOP PRN (11:15)
[2019-03-19] MEDS: FLUoxetine 20 MG CAP PO SCH (11:39)
[2019-03-19] MEDS: busPIRone 10 MG TAB PO SCH ×2 (11:39→20:29)
[2019-03-19] MEDS: PERCOCET 5MG/325MG TAB PO PRN (11:39)
[2019-03-19] MEDS: BACITRACIN OINT 30GM TOP SCH ×2 (12:00→18:04)
[2019-03-19 13:06] LABS: HEMATOCRIT 38.9 % (36.0-47.0); HEMOGLOBIN 12.5 g/dl (12.0-15.5); MEAN CORPUSCULAR HEMOGLOBIN 29.8 pg (27.0-33.0); MEAN CORPUSCULAR HGB CONC 32.1 g/dl (32.0-36.5); MEAN CORPUSCULAR VOLUME 92.8 fl (80.0-96.0); PLATELET COUNT, AUTOMATED 269 10^3/uL (150-450); RED BLOOD COUNT 4.19 10^6/uL (4.00-5.40); WHITE BLOOD COUNT 11.5 10^3/uL (4.0-10.0)
[2019-03-19 14:01] LABS: ATYPICAL LYMPH 1 % (0-5); LYMPHOCYTES 8 % (16-44); METAMYELOCYTES 1 % (0-0); MYELOCYTES 3 % (0-0); NEUTROPHILS 83 % (28-66)
[2019-03-19 14:02] LABS: ANISOCYTOSIS 1+; PLATELET ESTIMATE NORMAL (NORMAL)
--- NOTE | 2019-03-19 14:43 | IPN ---
DATE: 03/19/2019 She is doing fine. She has no complaints. The rash has not worsened. It is mostly on her back, it is nonpruritic. She is currently on meropenem 1 gram IV q.8 h. No fever or chills. She has difficulty opening her mouth. LABORATORIES: White count 11.5, hemoglobin 12.5, hematocrit 38.9, platelets 269. Sodium 135, potassium 4.8, chloride 102, bicarbonate 29, BUN 10, creatinine 0.72. Right neck swelling with a drain in place. There is bloody discharge. Left submandibular adenopathy. Mouth opens about 3 cm. Heart: Normal S1, S2. No murmurs. Lungs are clear. No wheezes, rales or rhonchi. Abdomen is soft, obese, nontender. Extremities: No edema. She has a diffuse morbilliform rash, especially on her back, some on her neck, faintly on her legs. IMPRESSION: 1. Peritonsillar abscess. On IV meropenem, status post incision and drainage a second time, stable. 2. Acute infectious mononucleosis 3. Rash from penicillin associated with infectious mononucleosis. This is not an allergy that the patient cannot take any more penicillin but it is associated with this viral infection. PLAN: Continue IV meropenem. Follow intraoperative culture. Cultures from 03/12 have shown mostly Prevotella and fusobacterium, which should be covered with meropenem. [facility]
--- NOTE | 2019-03-19 15:33 | RO ---
DATE OF PROCEDURE: PREOPERATIVE DIAGNOSIS: Patient with previous right peritonsillar abscess growing out anaerobic organisms with new fluid collection in the right neck and also what appeared to be purulent discharge from the right peritonsillar incision site. POSTOPERATIVE DIAGNOSIS: Patient with previous right peritonsillar abscess growing out anaerobic organisms with new fluid collection in the right neck and also what appeared to be purulent discharge from the right peritonsillar incision site. OPERATION PERFORMED: Right neck incision and drainage with placement of 7 mm Margarito-Diallo flat drain and reevaluation of the right previous incision and drainage site with culture from the right neck site as well as the right reexploration of previous incision site of the right peritonsillar region. SURGEON: Juan De La Rosa Jr, MD [employer] SURVEYOR: ANESTHESIA: General via endotracheal tube. INDICATIONS FOR PROCEDURE: Patient is status post incision and drainage of right peritonsillar abscess with new ill-defined fluid collection in the neck status post change from clindamycin plus ceftazidime and then switched to Zosyn with the reaction to Zosyn and recently switched to meropenem. PROCEDURE IN DETAIL: After the patient was potentially prepped for possible tracheotomy if necessary the patient was relatively easily intubated without significant difficulty. There was much less swelling than on the previous exam and surgery. At this point, she was then placed on a shoulder roll with the neck turned to the left. The angle of the mandible was difficult to feel because of the swelling that was present but this was demarcated the anterior border sternocleidomastoid two fingerbreadths below the neck or the ramus of the mandible approximately a 3-4 cm incision ensued and parallel to the cervical creases. This was taken down through the skin into the subcutaneous layer, platysma, and then dissection was done medial and lateral to the angle of the mandible large cavity was entered. There was more serosanguineous than lilli pus that was removed from this area. There was oozing that was present. The surgeon explored this with the finger lateral to the angle of the mandible going up a portion of the lateral aspect of the mandible as well as medial to the angle of the mandible into the parapharyngeal region. Also, an 18-gauge 3-inch spinal needle was placed in the parapharyngeal space with no further pus in this area once the angle of the mandible had been identified. At this point, after copious irrigation with bacitracin ointment the cavity was debrided with the peanut both lateral and medial to the mandible, and then a 7 mm Margarito-Diallo was placed after a separate skin incision was made to place the Margarito-Diallo (J-P) drain. Once this was done and after irrigation with approximately 100 mL of bacitracin irrigation the wound was closed with #4-0 Prolene and the J-P drain was placed medial to the angle of the mandible closer to the parapharyngeal space, and then the drain was sutured to the skin with silk and then attention was drawn to the second procedure, which was re-inspection of the right peritonsillar incision and drainage site. The patient was turned 90 degrees and a drape was reapproximated and redressed. The patient was placed in Trendelenburg and the Renny-Ellie mouth gag was placed without difficulty. There appeared to be more of an exudate at the incision and drainage site, which was removed, and it was also cultured for aerobic and anaerobic just like the neck abscess was cultured for anaerobic and aerobic, and then utilizing a tonsillar snit this area was reprobed. There was no evidence of any pus in this area. This cavity was irrigated with bacitracin irrigation, approximately 200 mL. The airway looked much better. There was much less swelling. The nasal cavity was also irrigated as well as the oral cavity. At this point, an LTA was placed over the larynx under direct visualization, and at this point, the operation was concluded. Estimated blood loss was approximately 50 mL. There were no complications of the surgery. The patient was taken back into recovery in good satisfactory condition. ALEJANDRA
[2019-03-20] VITALS: BP 130/78
[2019-03-20] MEDS: BACITRACIN OINT 30GM TOP SCH ×5 (00:45→23:12)
[2019-03-20] MEDS: MEROPENEM INJ 1 GM in IV 1 EA IV SCH ×3 (03:45→19:00)
[2019-03-20 04:06] VITALS: BP 104/62
[2019-03-20 07:16] LABS: HEMATOCRIT 35.9 % (36.0-47.0); MEAN CORPUSCULAR HEMOGLOBIN 30.3 pg (27.0-33.0); MEAN CORPUSCULAR HGB CONC 33.4 g/dl (32.0-36.5); MEAN CORPUSCULAR VOLUME 90.7 fl (80.0-96.0); PLATELET COUNT, AUTOMATED 312 10^3/uL (150-450); RED BLOOD COUNT 3.96 10^6/uL (4.00-5.40); WHITE BLOOD COUNT 12.4 10^3/uL (4.0-10.0)
[2019-03-20 07:39] LABS: BLOOD UREA NITROGEN 11 MG/DL (7-18); CALCIUM LEVEL 8.7 MG/DL (8.5-10.1); CARBON DIOXIDE LEVEL 27 MEQ/L (21-32); CHLORIDE LEVEL 103 MEQ/L (98-107); CREATININE FOR GFR 0.61 MG/DL (0.55-1.30); GLOMERULAR FILTRATION RATE > 60.0 (>60); GLUCOSE, FASTING 102 MG/DL (70-100); POTASSIUM SERUM 3.6 MEQ/L (3.5-5.1); SODIUM LEVEL 136 MEQ/L (136-145)
[2019-03-20 07:47] LABS: ATYPICAL LYMPH 3 % (0-5); EOSINOPHILS 1 % (0-3); LYMPHOCYTES 13 % (16-44); METAMYELOCYTES 7 % (0-0); MONOCYTES 6 % (0-5); MYELOCYTES 2 % (0-0); NEUTROPHILS 68 % (28-66)
[2019-03-20 07:48] LABS: PLATELET ESTIMATE NORMAL (NORMAL)
[2019-03-20 08:00] VITALS: BP 127/74
--- NOTE | 2019-03-20 09:52 | IPNPDOC ---
Subjective Date Seen The patient was seen on 03/20/19. Subjective Chief Complaint/HPI Patient feels a lot better. Pain is almost gone. Swelling has significantly decreased, has a drain on the right side of her face Constitutional: Denies: Chills, Fever, Malaise, Night Sweats, Weakness, Fatigue, Weight Loss, Lethargy, Other ENT: Reports: Other Symptoms (decreased pain, right face and neck) Skin: Denies: Rash, Lesions, Jaundice, Bruising, Itching, Dry, Breakdown, Nail Changes, Other Cardiovascular: Denies: Chest Pain, Palpitations, Orthopnea, Paroxysmal Noc. Dyspnea, Edema, Lt Headedness, Other Symptoms Gastrointestinal: Denies: Nausea, Vomiting, Abdominal Pain, Diarrhea, Constipation, Melena, Hematochezia, Other Symptoms Musculoskeletal: Denies: Neck Pain, Back Pain, Shoulder Pain, Arm Pain, Hand Pain, Leg Pain, Foot Pain, Joint Pain, Muscle Pain, Spasms, Other Symptoms Neurological: Denies: Weakness, Numbness, Incoordination, Change in speech, Confusion, Seizures, Other Symptoms Objective Physical Examination ENT Exam: Positive: Other ENT (. Positive swelling right side of face and neck below the mandible decreased tenderness) Neck Exam: Positive: Supple, JVD Chest Exam: Positive: Clear to auscultation, Normal air movement Heart Exam: Positive: Rate Normal, Normal S1, Normal S2 Abdomen Exam: Positive: Normal bowel sounds, Soft Skin Exam: Positive: Other skin issue (punctate rash on the right side of face, but no pustules or vesicles) Psych Exam: Positive: Mood NL, Oriented x 3 Assessment /Plan Problems (1) Peritonsillar abscess Status: Acute Problem Text: Status post second I&D with placement of a drain Shouldn't clinically feels a lot better. Pain is subsequently resolved and s welling has resolved as well Discussed with ID yesterday. Continue meropenem for anaerobic coverage Discharge patient once cleared by ENT and ID and next few days (2) Sialadenitis Status: Acute Problem Text: Local care as per ENT (3) Infectious mononucleosis Status: Acute Problem Text: Supportive care Plan/VTE VTE Prophylaxis Ordered?: Yes VS, I&O, 24H, Fishbone Vital Signs/I&O Vital Signs Date Time Temp Pulse Resp B/P (MAP) Pulse Ox O2 Delivery O2 Flow Rate FiO2 03/20/19 04:06 98.5 85 18 104/62 (76) 98 Room Air 03/19/19 09:45 2 I&O- Last 24 Hours up to 6 AM 03/20/19 06:00 Intake Total 2425 ml Output Total 2838 ml Balance -413 ml Laboratory Data 24H LABS Laboratory Tests 2 03/19/19 11:49: Immature Granulocyte % (Auto) , Nucleated Red Blood Cells % (auto) 0.0, Neutrophils 83H, Band Neutrophils 4, Lymphocytes (Manual) 8L, Metamyelocytes 1H, Myelocytes 3H, Atypical Lymphocytes 1, Anisocytosis 1+, Platelet Estimate NORMAL 03/20/19 06:59: Immature Granulocyte % (Auto) , Nucleated Red Blood Cells % (auto) 0.0, Neutrophils 68H, Lymphocytes (Manual) 13L, Metamyelocytes 7H, Myelocytes 2H, Atypical Lymphocytes 3, Platelet Estimate NORMAL, Monocytes (Manual) 6H, Eosinophils (Manual) 1, Red Blood Cell Morphology NORMAL, Anion Gap 6L, Glomerular Filtration Rate > 60.0, Calcium Level 8.7 CBC/BMP Laboratory Tests 03/19/19 11:49 03/20/19 06:59 Microbiology Microbiology 03/19/19 Anaerobic Culture, Received Pending 03/19/19 Gram Stain - Final, Resulted 03/19/19 Wound Culture, Resulted Pending 03/19/19 Gram Stain - Final, Resulted 03/19/19 Abscess Culture, Resulted Pending 03/19/19 Anaerobic Culture, Resulted Pending 03/12/19 Gram Stain - Final, Complete 03/12/19 Abscess Culture - Final, Complete 03/12/19 Anaerobic Culture - Final, Complete Prevotella Melaninogenica 03/12/19 Gram Stain - Final, Complete 03/12/19 Abscess Culture - Final, Complete 03/12/19 Anaerobic Culture - Final, Complete Prevotella Melaninogenica Fusobacterium Varium 03/10/19 Blood Culture - Final, Complete NO GROWTH AFTER 5 DAYS 03/10/19 Blood Culture - Final, Complete NO GROWTH AFTER 5 DAYS RUPERT RUEDA MD Mar 20, 2019 09:52
[2019-03-20] MEDS: busPIRone 10 MG TAB PO SCH ×2 (10:45→20:23)
[2019-03-20] MEDS: FLUoxetine 20 MG CAP PO SCH (10:45)
[2019-03-20] MEDS: ACETAMINOPHEN TAB 650MG DOSE (2X325MG) PO PRN ×2 (11:33→20:31)
[2019-03-20 12:00] VITALS: BP 130/79
[2019-03-20 16:00] VITALS: BP 113/67
[2019-03-20 20:04] VITALS: BP 122/70
[2019-03-21] MEDS: MEROPENEM INJ 1 GM in IV 1 EA IV SCH ×3 (03:05→19:34)
[2019-03-21 04:15] VITALS: BP 123/75
[2019-03-21] MEDS: BACITRACIN OINT 30GM TOP SCH ×3 (06:29→22:20)
[2019-03-21 07:13] LABS: HEMATOCRIT 35.4 % (36.0-47.0); HEMOGLOBIN 11.6 g/dl (12.0-15.5); MEAN CORPUSCULAR HEMOGLOBIN 29.9 pg (27.0-33.0); MEAN CORPUSCULAR HGB CONC 32.8 g/dl (32.0-36.5); MEAN CORPUSCULAR VOLUME 91.2 fl (80.0-96.0); PLATELET COUNT, AUTOMATED 273 10^3/uL (150-450); RED BLOOD COUNT 3.88 10^6/uL (4.00-5.40); WHITE BLOOD COUNT 6.9 10^3/uL (4.0-10.0)
[2019-03-21 07:31] LABS: ALBUMIN 2.3 GM/DL (3.2-5.2); ALT/SGPT 46 U/L (12-78); BILIRUBIN,TOTAL 0.8 MG/DL (0.2-1.0); BLOOD UREA NITROGEN 14 MG/DL (7-18); CALCIUM LEVEL 8.6 MG/DL (8.5-10.1); CARBON DIOXIDE LEVEL 27 MEQ/L (21-32); CHLORIDE LEVEL 104 MEQ/L (98-107); CREATININE FOR GFR 0.63 MG/DL (0.55-1.30); GLOMERULAR FILTRATION RATE > 60.0 (>60); GLUCOSE, FASTING 87 MG/DL (70-100); POTASSIUM SERUM 3.6 MEQ/L (3.5-5.1); SODIUM LEVEL 139 MEQ/L (136-145); TOTAL PROTEIN 6.4 GM/DL (6.4-8.2)
[2019-03-21 07:33] LABS: ATYPICAL LYMPH 4 % (0-5); EOSINOPHILS 1 % (0-3); LYMPHOCYTES 25 % (16-44); METAMYELOCYTES 6 % (0-0); MONOCYTES 4 % (0-5); MYELOCYTES 1 % (0-0); NEUTROPHILS 59 % (28-66); PLATELET ESTIMATE NORMAL (NORMAL)
[2019-03-21 09:00] VITALS: BP 123/80
[2019-03-21] MEDS: FLUoxetine 20 MG CAP PO SCH (09:12)
[2019-03-21] MEDS: busPIRone 10 MG TAB PO SCH ×2 (09:12→20:51)
[2019-03-21] MEDS: ACETAMINOPHEN TAB 650MG DOSE (2X325MG) PO PRN ×3 (09:13→22:34)
--- NOTE | 2019-03-21 09:29 | IPNPDOC ---
Subjective Date Seen The patient was seen on 03/21/19. Subjective Chief Complaint/HPI Patient comfortable, decreased pain and swelling began in place with some discharge and it General: Denies: ROS Unobtainable, Chills, Night Sweats, Fatigue, Malaise, Normal Appetite, Other Symptoms Constitutional: Denies: Chills, Fever, Malaise, Night Sweats, Weakness, Fatigue, Weight Loss, Lethargy, Other ENT: Reports: Other Symptoms (dressing at the right side of face and neck with drain in place) Pulmonary: Denies: Dyspnea, Cough, Pleuritic Chest Pain, Other Symptoms Cardiovascular: Denies: Chest Pain, Palpitations, Orthopnea, Paroxysmal Noc. Dyspnea, Edema, Lt Headedness, Other Symptoms Gastrointestinal: Denies: Nausea, Vomiting, Abdominal Pain, Diarrhea, Constipation, Melena, Hematochezia, Other Symptoms Hematologic: Denies: Bruising, Bleeding Excessively, Petecchia, Purpura, Enlarged Lymph Nodes, Other Hematologic Musculoskeletal: Denies: Neck Pain, Back Pain, Shoulder Pain, Arm Pain, Hand Pain, Leg Pain, Foot Pain, Joint Pain, Muscle Pain, Spasms, Other Symptoms Objective Physical Examination ENT Exam: Positive: Other ENT (. Positive swelling right side of face and neck below the mandible decreased tenderness) Neck Exam: Positive: Supple, JVD Chest Exam: Positive: Clear to auscultation, Normal air movement Heart Exam: Positive: Rate Normal, Normal S1, Normal S2 Abdomen Exam: Positive: Normal bowel sounds, Soft Skin Exam: Positive: Other skin issue (punctate rash on the right side of face, but no pustules or vesicles) Psych Exam: Positive: Mood NL, Oriented x 3 Assessment /Plan Problems (1) Peritonsillar abscess Status: Acute Problem Text: Status post second I&D with placement of a drain she is clinically feels a lot better. Pain is subsequently resolved and swelling has resolved as well . Continue meropenem final, but coverage Chart and was cleared by ENT and ID (2) Sialadenitis Status: Acute Problem Text: Local care as per ENT (3) Infectious mononucleosis Status: Acute Problem Text: Supportive care Plan/VTE VTE Prophylaxis Ordered?: Yes VS, I&O, 24H, Fishbone Vital Signs/I&O Vital Signs Date Time Temp Pulse Resp B/P (MAP) Pulse Ox O2 Delivery O2 Flow Rate FiO2 03/21/19 09:00 98.9 88 19 123/80 (94) 98 Room Air 03/19/19 09:45 2 I&O- Last 24 Hours up to 6 AM 03/21/19 06:00 Intake Total 1910 ml Output Total 1808 ml Balance 102 ml Laboratory Data 24H LABS Laboratory Tests 2 03/21/19 06:39: Immature Granulocyte % (Auto) , Nucleated Red Blood Cells % (auto) 0.0, Neutrophils 59, Lymphocytes (Manual) 25, Monocytes (Manual) 4, Eosinophils (Manual) 1, Metamyelocytes 6H, Myelocytes 1H, Atypical Lymphocytes 4, Red Blood Cell Morphology NORMAL, Platelet Estimate NORMAL, Anion Gap 8, Glomerular Filtration Rate > 60.0, Calcium Level 8.6, Total Bilirubin 0.8, Aspartate Amino Transf (AST/SGOT) 30, Alanine Aminotransferase (ALT/SGPT) 46, Alkaline Phosphatase 65, Total Protein 6.4, Albumin 2.3L, Albumin/Globulin Ratio 0.56L CBC/BMP Laboratory Tests 03/21/19 06:39 Microbiology Microbiology 03/19/19 Anaerobic Culture, Received Pending 03/19/19 Gram Stain - Final, Resulted 03/19/19 Wound Culture, Resulted Pending 03/19/19 Gram Stain - Final, Resulted 03/19/19 Abscess Culture, Resulted Pending 03/19/19 Anaerobic Culture, Resulted Pending 03/12/19 Gram Stain - Final, Complete 03/12/19 Abscess Culture - Final, Complete 03/12/19 Anaerobic Culture - Final, Complete Prevotella Melaninogenica 03/12/19 Gram Stain - Final, Complete 03/12/19 Abscess Culture - Final, Complete 03/12/19 Anaerobic Culture - Final, Complete Prevotella Melaninogenica Fusobacterium Bibianaum RUPERT RUEDA MD Mar 21, 2019 09:29
[2019-03-21 16:00] VITALS: BP 116/64
[2019-03-21 20:00] VITALS: BP 121/77
[2019-03-22] MEDS: MEROPENEM INJ 1 GM in IV 1 EA IV SCH ×3 (03:32→18:42)
[2019-03-22 04:00] VITALS: BP 130/72
[2019-03-22] MEDS: BACITRACIN OINT 30GM TOP SCH ×5 (04:35→23:35)
[2019-03-22 08:00] VITALS: BP 131/73
[2019-03-22] MEDS: FLUoxetine 20 MG CAP PO SCH (08:32)
[2019-03-22] MEDS: busPIRone 10 MG TAB PO SCH ×2 (08:33→20:29)
[2019-03-22] MEDS: ACETAMINOPHEN TAB 650MG DOSE (2X325MG) PO PRN ×2 (08:37→23:38)
[2019-03-22 10:15] LABS: HEMATOCRIT 37.4 % (36.0-47.0); HEMOGLOBIN 12.4 g/dl (12.0-15.5); MEAN CORPUSCULAR HEMOGLOBIN 30.6 pg (27.0-33.0); MEAN CORPUSCULAR HGB CONC 33.2 g/dl (32.0-36.5); MEAN CORPUSCULAR VOLUME 92.3 fl (80.0-96.0); PLATELET COUNT, AUTOMATED 287 10^3/uL (150-450); RED BLOOD COUNT 4.05 10^6/uL (4.00-5.40); WHITE BLOOD COUNT 5.5 10^3/uL (4.0-10.0)
--- NOTE | 2019-03-22 11:03 | IPNPDOC ---
Subjective Date Seen The patient was seen on 03/22/19. Subjective Chief Complaint/HPI Patient feeling much better, very for ENT follow-up ,mother at bedside General: Denies: ROS Unobtainable, Chills, Night Sweats, Fatigue, Malaise, Normal Appetite, Other Symptoms Constitutional: Denies: Chills, Fever, Malaise, Night Sweats, Weakness, Fatigue, Weight Loss, Lethargy, Other ENT: Reports: Other Symptoms (, decreased swelling, redness) Pulmonary: Denies: Dyspnea, Cough, Pleuritic Chest Pain, Other Symptoms Cardiovascular: Denies: Chest Pain, Palpitations, Orthopnea, Paroxysmal Noc. Dyspnea, Edema, Lt Headedness, Other Symptoms Gastrointestinal: Denies: Nausea, Vomiting, Abdominal Pain, Diarrhea, Constipation, Melena, Hematochezia, Other Symptoms Musculoskeletal: Denies: Neck Pain, Back Pain, Shoulder Pain, Arm Pain, Hand Pain, Leg Pain, Foot Pain, Joint Pain, Muscle Pain, Spasms, Other Symptoms Neurological: Denies: Weakness, Numbness, Incoordination, Change in speech, Confusion, Seizures, Other Symptoms Objective Physical Examination ENT Exam: Positive: Other ENT (, drainage in place. This is some secretion noted in the drain tube in the tubing, decreased swelling, redness of right side of face and neck) Neck Exam: Positive: Supple, JVD Chest Exam: Positive: Clear to auscultation, Normal air movement Heart Exam: Positive: Rate Normal, Normal S1, Normal S2 Abdomen Exam: Positive: Normal bowel sounds, Soft Skin Exam: Positive: Other skin issue Psych Exam: Positive: Mood NL, Oriented x 3 Assessment /Plan Problems (1) Peritonsillar abscess Status: Acute Problem Text: Status post second I&D with placement of a drain she is clinically feels a lot better. Pain is subsequently resolved and swelling has resolved as well Continue meropenem for anaerobic coverage Will await ENT and ID follow-up, and their recommendations Discharge planning (2) Sialadenitis Status: Acute Problem Text: Local care as per ENT (3) Infectious mononucleosis Status: Acute Problem Text: Supportive care Plan/VTE VTE Prophylaxis Ordered?: Yes VS, I&O, 24H, Fishbone Vital Signs/I&O Vital Signs Date Time Temp Pulse Resp B/P (MAP) Pulse Ox O2 Delivery O2 Flow Rate FiO2 03/22/19 08:00 98.0 83 18 131/73 (92) 98 Room Air 03/19/19 09:45 2 I&O- Last 24 Hours up to 6 AM 03/22/19 06:00 Intake Total 2020 ml Output Total 1003 ml Balance 1017 ml Laboratory Data 24H LABS Laboratory Tests 2 03/22/19 10:04: Immature Granulocyte % (Auto) , Nucleated Red Blood Cells % (auto) 0.0 CBC/BMP Laboratory Tests 03/22/19 10:04 Microbiology Microbiology 03/19/19 Anaerobic Culture, Received Pending 03/19/19 Gram Stain - Final, Complete 03/19/19 Wound Culture - Final, Complete Strep Constellatus Ssp Constel 03/19/19 Gram Stain - Final, Resulted 03/19/19 Abscess Culture - Final, Resulted Strep Constellatus Ssp Constel 03/19/19 Anaerobic Culture, Resulted Pending 03/12/19 Gram Stain - Final, Complete 03/12/19 Abscess Culture - Final, Complete 03/12/19 Anaerobic Culture - Final, Complete Prevotella Melaninogenica 03/12/19 Gram Stain - Final, Complete 03/12/19 Abscess Culture - Final, Complete 03/12/19 Anaerobic Culture - Final, Complete Prevotella Melaninogenica Fusobacterium Bibianaum RUPERT RUEDA MD Mar 22, 2019 11:03
[2019-03-22 11:07] LABS: ATYPICAL LYMPH 4 % (0-5); BASOPHILS 1 % (0-1); EOSINOPHILS 1 % (0-3); LYMPHOCYTES 36 % (16-44); METAMYELOCYTES 3 % (0-0); MONOCYTES 6 % (0-5); MYELOCYTES 2 % (0-0); NEUTROPHILS 46 % (28-66)
[2019-03-22 11:08] LABS: ANISOCYTOSIS 1+; PLATELET ESTIMATE NORMAL (NORMAL)
[2019-03-22 12:00] VITALS: BP 125/79
--- NOTE | 2019-03-22 12:05 | IPN ---
DATE: 03/22/2019 SUBJECTIVE: The patient is doing much better. Dr. Recinos had evaluated the patient for me this past weekend and reported the patient has done relatively well. She reports no significant problems at this time. No recent temperature. She is able to eat. She has decreased pain and decreased swelling in the right neck. EXAM: Current vital signs: Temperature is 98 degrees Fahrenheit, blood pressure 131/73, pulse is 83. Margarito-Diallo (LEÓN) drainage was 15 mL up from the previous day. The patient states that yesterday the drainage was more clear, today, is slightly little bit more bloody discharge but still less than 20 mL. Intraorally, the incision and drainage of the right peritonsillar shows no more purulent discharge and looks much better and is healing more appropriately. Neck is much less tender on the right side. Incision and drainage site shows sutures are in place. No redness in the area. LEÓN drainage has more serosanguineous, more sanguineous than serous. The LEÓN tube was milked. Significant decrease in swelling of the neck. Microbiology test reveals neck incision and drainage grew out streptococcus constellatus, which was resistant to clindamycin and third-generation cephalosporins, sensitive to Avelox. White count today is 5.5, hemoglobin 12.4, hematocrit 37.4, platelet count 287,000. IMPRESSION: Significant improvement status post incision and drainage, right neck fluid collection which grew out Streptococcus constellatus with sensitivities done. PLAN: If drainage is decreased tomorrow will have the patient's drain removed tomorrow and then will have infectious disease consider what would be the appropriate outpatient antibiotics for this patient. Infectious disease (ID) consult appreciated.
[2019-03-22 16:00] VITALS: BP 134/78
[2019-03-22 20:00] VITALS: BP 122/79
[2019-03-23] VITALS: BP 120/59
[2019-03-23] MEDS: MEROPENEM INJ 1 GM in IV 1 EA IV SCH (03:48)
[2019-03-23] MEDS: BACITRACIN OINT 30GM TOP SCH ×3 (06:29→18:31)
[2019-03-23 08:00] VITALS: BP 125/87
[2019-03-23] MEDS: FLUoxetine 20 MG CAP PO SCH (08:45)
[2019-03-23] MEDS: busPIRone 10 MG TAB PO SCH ×2 (08:45→20:24)
--- NOTE | 2019-03-23 10:40 | IPN ---
DATE: 03/23/2019 The patient was seen in the morning at approximately 9:30 a.m. SUBJECTIVE: The patient is feeling better. Still has mild tenderness off and on, but significantly improved since incision and drainage of the right neck fluid collection which grew out Streptococcus constellatus despite being on meropenem. The drainage start looking more red yesterday from the J-P drain according to the patient and today looked a little bit more cloudy. She denies any pain or fever. She is eating well, a mechanical soft diet currently, and no complaints except that it is still just slightly tender. OBJECTIVE: Temperature reveals current temperature is 97.2 degrees Fahrenheit, blood pressure 125/87, pulse is 98. The patient is resting comfortably. There is still some mild swelling in the right side of the neckb, but significantly decreased since incision and drainage of the neck on the right side. The drain is in place. No erythema overlying the wound or the drainage site. J-P drainage was 7 mL; however, it is becoming more cloudy and more sanguinous and purulent than serous. Yesterday it was a little bit more sanguinous. Oral cavity shows peritonsillar incision and drainage site is now showing signs of healing and is virtually healed and there is no evidence of any purulent drainage from the peritonsillar abscess region. There was no white count that was performed by the time of this visit. Previous white count from 03/22/2019 was 5.5. Microbiology: The patient grew out Streptococcus constellatus from the incision and drainage of the neck incision on 03/19/2019 despite being on meropenem at the time. J-P drainage decreasing, however, becoming more sanguinous and more purulent, suggestive that antibiotic coverage is not covering the Streptococcus constellatus. IMPRESSION: Patient with multiple organisms in the past who previously had Prevotella melaninogenica grow out from the peritonsillar abscess as well as Fusobacterium varium. The patient had initially been treated as an outpatient on Augmentin and failed that. She was placed on clindamycin and failed thjat. Ceftazidime was added on to that for some gram-negative rods that were identified. Initial improvement, but then developed neck collection, ill-defined and went for incision and drainage, growing out Streptococcus constellatus which was resistant to clindamycin. The patient also had a positive monospot as well. PLAN: At this point from an ENT surgical point of view, the patient had shown some clinical improvement initially from the incision and drainage; however, the drainage appears to be becoming more cloudy and more sanguinous/purulent today than yesterday suggesting the possibility that there is continued infection. I initially was planning to remove the drain today; however, would not recommend that as I am not completely certain that this organism is satisfactorily covered with meropenem from a clinical point of view. W wait for infectious disease (ID) to make antibiotic management decisions with regards to that. Will keep the J-P in until there is clinical evidence of significant improvement with the drainage in order to try and prevent further surgical intervention. ID consult is appreciated. Will keep the J-P in for now.
[2019-03-23] MEDS ORDERED: MOXIFLOXACIN HCL 400 MG in IV 1 EA IV SCH (12:00)
--- NOTE | 2019-03-23 13:19 | IPNPDOC ---
Subjective Date Seen The patient was seen on 03/23/19. Subjective Chief Complaint/HPI Patient feels better. Swelling has gone down but is still copious amount of drainage through her LEÓN drain General: Denies: ROS Unobtainable, Chills, Night Sweats, Fatigue, Malaise, Normal Appetite, Other Symptoms ENT: Reports: Other Symptoms (pain and swelling right side of face and neck) Skin: Denies: Rash, Lesions, Jaundice, Bruising, Itching, Dry, Breakdown, Nail Changes, Other Pulmonary: Denies: Dyspnea, Cough, Pleuritic Chest Pain, Other Symptoms Cardiovascular: Denies: Chest Pain, Palpitations, Orthopnea, Paroxysmal Noc. Dyspnea, Edema, Lt Headedness, Other Symptoms Gastrointestinal: Denies: Nausea, Vomiting, Abdominal Pain, Diarrhea, Constipation, Melena, Hematochezia, Other Symptoms Musculoskeletal: Denies: Neck Pain, Back Pain, Shoulder Pain, Arm Pain, Hand Pain, Leg Pain, Foot Pain, Joint Pain, Muscle Pain, Spasms, Other Symptoms Neurological: Denies: Weakness, Numbness, Incoordination, Change in speech, Confusion, Seizures, Other Symptoms Objective Physical Examination ENT Exam: Positive: Other ENT (LEÓN drain in place. Drainage noted , drain at right side of face) Neck Exam: Positive: Supple, JVD Chest Exam: Positive: Clear to auscultation, Normal air movement Heart Exam: Positive: Rate Normal, Normal S1, Normal S2 Abdomen Exam: Positive: Normal bowel sounds, Soft Skin Exam: Positive: Other skin issue Psych Exam: Positive: Mood NL, Oriented x 3 Assessment /Plan Problems (1) Peritonsillar abscess Status: Acute Problem Text: Status post second I&D with placement of a drain she is clinically feels a lot better. Pain is subsequently resolved and swelling has resolved as well Continue meropenem for anaerobic coverage ENT follow-up noted today. We will keep the LEÓN drain in place today Further recommendations as per ID (2) Sialadenitis Status: Acute Problem Text: Local care as per ENT (3) Infectious mononucleosis Status: Acute Problem Text: Supportive care Plan/VTE VTE Prophylaxis Ordered?: Yes VS, I&O, 24H, Fishbone Vital Signs/I&O Vital Signs Date Time Temp Pulse Resp B/P (MAP) Pulse Ox O2 Delivery O2 Flow Rate FiO2 03/23/19 08:00 97.2 102 18 125/87 (100) 98 Room Air 03/19/19 09:45 2 I&O- Last 24 Hours up to 6 AM 03/23/19 06:00 Intake Total 1950 ml Output Total 1522 ml Balance 428 ml Laboratory Data Microbiology Microbiology 03/19/19 Anaerobic Culture, Received Pending 03/19/19 Gram Stain - Final, Complete 03/19/19 Wound Culture - Final, Complete Strep Constellatus Ssp Constel 03/19/19 Gram Stain - Final, Resulted 03/19/19 Abscess Culture - Final, Resulted Strep Constellatus Ssp Constel 03/19/19 Anaerobic Culture, Resulted Pending RUPERT RUEDA MD Mar 23, 2019 13:19
[2019-03-23 20:00] VITALS: BP 125/70
[2019-03-23] MEDS: ACETAMINOPHEN TAB 650MG DOSE (2X325MG) PO PRN (20:14)
[2019-03-24] MEDS ORDERED: MOXIFLOXACIN 400 MG TAB PO SCH (06:00)
[2019-03-24] MEDS: BACITRACIN OINT 30GM TOP SCH ×3 (06:22→12:09)
[2019-03-24 08:00] VITALS: BP 103/58
[2019-03-24] MEDS: ACETAMINOPHEN TAB 650MG DOSE (2X325MG) PO PRN (08:54)
[2019-03-24] MEDS: busPIRone 10 MG TAB PO SCH (08:54)
[2019-03-24] MEDS: FLUoxetine 20 MG CAP PO SCH (08:55)
[2019-03-24] MEDS ORDERED: MOXI400T11 PO (10:46)
--- NOTE | 2019-03-24 11:43 | DS.PDOC ---
Discharge Summary General Date of Admission Mar 12, 2019 at 10:22 Date of Discharge 03/24/19 Discharge Summary PROCEDURES PERFORMED DURING STAY: None. ADMITTING DIAGNOSES: 1. Peritonsillar abscess, sialoadenitis. DISCHARGE DIAGNOSES: 1. Peritonsillar abscess, sialoadenitis. COMPLICATIONS/CHIEF COMPLAINT: Peritonsillitis. HISTORY OF PRESENT ILLNESS: This is 28 years old, obese, white female with past medical history of migraine headache and psychiatric problems, had developed sore throat since last 2-3 days which progressively was getting worse. She was unable to swallow and the pain also radiated towards right neck and throat and decided come to ER. In the ED, patient received IV clindamycin Solu-Medrol and had a CT of the neck done which was consistent with peritonsillar cellulitis and right-sided sialoadenitis of submandibular region and we were asked to admit patient for observation. Patient is still complaining of pain and swelling in her throat and right side of her neck but no chest pain, fever, nausea, vomiting or shortness of breath. HOSPITAL COURSE: 28 years old, white female was admitted with the diagnosis of peritonsillar absent sialoadenitis of right side of her face and neck. Initially she was seen by Joon Hensley from ENT and had a drainage done and she was started on IV antibiotics, which include clindamycin and cephalosporins. Patient initially did not respond to the above antibiotics. Hence, ID consult was called and patient was started on meropenem. Patient's wound culture showed multiple anaerobes and meropenem was continued but she still continued to have persistent symptoms. Patient again was taken to or by ENT and every drainage done and LEÓN drain was placed and. Patient's repeat cultures show strep as well which is sensitive to Levaquin and antibiotics were changed from IV Merrem to by mouth Avelox yesterday by infectious disease. Patient had responded very well to the drainage are LEÓN drain was taken out as her swelling and redness and pain that has significantly decreased, and she will be discharged home on by mouth Avelox of her current getting clearance from ENT and ID. Patient also was diagnosed with infectious mononucleosis on a laboratory basis for which only supportive care was provided. Patient will follow with ENT in one week for routine follow-up. DISCHARGE MEDICATIONS: Please see below. ALLERGIES: Please see below. PHYSICAL EXAMINATION ON DISCHARGE: VITAL SIGNS: Please see below. GENERAL: Within normal limits HEENT: dressing dressing on right side of face. There is no more swelling, redness, right side of face and neck, but there is submandibular enlargement of the salivary gland] NECK: as above CARDIOVASCULAR EXAMINATION: S1 S2 regular RESPIRATORY EXAMINATION: clear to A&P ABDOMINAL EXAMINATION: benign EXTREMITIES: neg CCE SKIN: NL NEUROLOGICAL EXAMINATION: . No focal motor sensory deficit PSYCHIATRIC EXAMINATION: LABORATORY DATA: Please see below. IMAGING: CT neck: Persistent multicompartment ill-defined postprocedural fluid collection of the right neck soft tissues as described without adjacent osseous erosion or significant compromise of the airway. PROGNOSIS: Good ACTIVITY: As tolerated. DIET: As tolerated DISCHARGE PLAN: Follow with ENT in one week DISPOSITION: . Home DISCHARGE INSTRUCTIONS: 1. As per discharge instructions. ITEMS TO FOLLOWUP ON ON OUTPATIENT: 1. Follow-up with ENT in one week. DISCHARGE CONDITION: Stable. TIME SPENT ON DISCHARGE: 42minutes. Vital Signs/I&Os Vital Signs Date Time Temp Pulse Resp B/P (MAP) Pulse Ox O2 Delivery O2 Flow Rate FiO2 03/24/19 08:00 98.1 103 18 103/58 (73) 100 Room Air 03/19/19 09:45 2 I&O- Last 24 Hours up to 6 AM 03/24/19 05:59 Intake Total 1570 ml Output Total 2013 ml Balance -443 ml Microbiology Microbiology 03/19/19 Anaerobic Culture - Final, Complete Prevotella Melaninogenica 03/19/19 Gram Stain - Final, Complete 03/19/19 Wound Culture - Final, Complete Strep Constellatus Ssp Constel 03/19/19 Gram Stain - Final, Complete 03/19/19 Abscess Culture - Final, Complete Strep Constellatus Ssp Constel 03/19/19 Anaerobic Culture - Final, Complete Fusobacterium Varium Discharge Medications Scheduled Buspirone HCl (Buspirone HCl) 30 Mg Tablet, 30 MG PO BID, (Reported) Fluoxetine Hcl (Fluoxetine HCl) 20 Mg Capsule, 80 MG PO DAILY, (Reported) Lisdexamfetamine Dimesylate (Vyvanse) 50 Mg Capsule, 50 MG PO DAILY, (Reported) Moxifloxacin HCl (Moxifloxacin HCl) 400 Mg Tablet, 400 MG PO DAILY@06 Scheduled PRN Meclizine HCl (Meclizine HCl) 25 Mg Tablet, 25 MG PO Q8H PRN for DIZZINESS, (Reported) Rizatriptan Benzoate (Rizatriptan) 10 Mg Tab.rapdis, 10 MG PO ASDIRECTED PRN for MIGRAINE, (Reported) Allergies Coded Allergies: No Known Allergies (Unverified , 01/28/19) RUPERT RUEDA MD Mar 24, 2019 11:43
--- NOTE | 2019-03-24 12:28 | IPN ---
DATE: 03/24/2019 SUBJECTIVE: The patient is feeling much better, much less swelling, is eating well, has been changed to by mouth moxifloxacin and is able to tolerated it as well. She has no complaints today. EXAMINATION: Margarito-Diallo (LEÓN) drain has 6 mL this 8 hours and 14 mL the previous day, slightly bloody but good portion of it serous as well. LEÓN was removed without issues in its entirety. Dressing was placed over the small drainage port. The sutures in the neck are intact. No signs of cellulitis. LABS: No recent labs to date in the last 24 hours. IMPRESSION: Significantly improved. Infectious disease (ID) has change her over to antibiotic that will work on her Streptococcus constellatus, and at this point has cleared for discharge from ears, nose, and throat (ENT) point of view. We will have her followup with us next , and my nurse will make the appointment, at which time, will likely take out the sutures if she shows good signs of healing. All questions were answered of the mother as well as the patient.
== END 2019-03-24 12:45 | disposition home or self-care (01) | DRG 98 ==
LOC: M ED 00:32 → M ED INP 00:33 → M PED 11:10 → OBSVTOIN 03-12 10:22
PROVIDERS: ADMIT Internal Medicine; ATTEND Internal Medicine
PROC: 3E1F78Z Irrigation of Respiratory Tract using Irrigating Substance, Via Natural or Artificial Opening (ICD-10-PCS; 2019-03-19)
PROC: 0W930ZZ Drainage of Oral Cavity and Throat, Open Approach (ICD-10-PCS; principal; 2019-03-19 07:30)
DX: J36 Peritonsillar abscess (principal); Z68.42 Body mass index [BMI] 45.0-49.9, adult; E66.01 Morbid (severe) obesity due to excess calories; K11.21 Acute sialoadenitis; L27.0 Generalized skin eruption due to drugs and medicaments taken internally; B27.99 Infectious mononucleosis, unspecified with other complication; B95.5 Unspecified streptococcus as the cause of diseases classified elsewhere; G43.909 Migraine, unspecified, not intractable, without status migrainosus; T36.0X5A Adverse effect of penicillins, initial encounter; F41.1 Generalized anxiety disorder; Z79.899 Other long term (current) drug therapy

== ENCOUNTER → 2021-08-15 | Outpatient (CLI) | payer OTHER ==
[~2021-08-15] MED LIST changes: +BUSP30TA PO; +FLUO-96 PO; -MECL-68 PO; +MECL1TAB31 PO; +MOXI400T11 PO; -RIZA5TAB PO; +RIZA5TAB2 PO; +VYVA50CA4 PO
== END ==
LOC: M PLAIMG 08:30
DX: H53.412 Scotoma involving central area, left eye (principal)

== ENCOUNTER → 2021-11-07 | Outpatient (CLI) | payer OTHER | LOC: M PLAIMG 09:19 | PROVIDERS: ATTEND Psychiatry & Neurology Neurology | DX: G37.8 Other specified demyelinating diseases of central nervous system (principal); G35 Multiple sclerosis ==

== ENCOUNTER → 2021-11-08 | Outpatient (CLI) | payer OTHER | LOC: M PLAIMG 11:15 | PROVIDERS: ATTEND Psychiatry & Neurology Neurology | DX: Z53.9 Procedure and treatment not carried out, unspecified reason (principal) ==

== ENCOUNTER → 2023-05-22 | Outpatient (CLI) | payer OTHER ==
[~2023-05-22] MED LIST changes: +MECL-209 PO; -MECL1TAB31 PO; +PROHANCE 279.3MG/ML 15ML VIAL ONE; +PROHANCE 279.3MG/ML 5ML VIAL ONE
== END ==
LOC: M PLAIMG 13:00
PROVIDERS: ATTEND Psychiatry & Neurology Neurology
DX: G37.9 Demyelinating disease of central nervous system, unspecified (principal)

== ENCOUNTER → 2024-05-17 | Outpatient (CLI) | payer OTHER ==
[~2024-05-17] MED LIST changes: -PROHANCE 279.3MG/ML 15ML VIAL ONE; -PROHANCE 279.3MG/ML 5ML VIAL ONE
[2024-05-17 14:45] LABS: BASO # 0.1 10^3/uL (0.0-0.2); BASO % 0.8 % (0.0-1.0); EOS # 0.4 10^3/uL (0.0-0.5); EOS % 6.2 % (0.0-3.0); HEMATOCRIT 40.3 % (36.0-47.0); HEMOGLOBIN 13.4 g/dl (12.0-15.5); LYMPH # 1.3 10^3/uL (1.5-5.0); LYMPH % 20.1 % (24.0-44.0); MEAN CORPUSCULAR HEMOGLOBIN 28.5 pg (27.0-33.0); MEAN CORPUSCULAR HGB CONC 33.3 g/dl (32.0-36.5); MEAN CORPUSCULAR VOLUME 85.7 fl (80.0-96.0); MONO # 0.5 10^3/uL (0.0-0.8); MONO % 8.1 % (2.0-8.0); NEUTROPHILS # 4.2 10^3/uL (1.5-8.5); NEUTROPHILS % 63.3 % (36.0-66.0); PLATELET COUNT, AUTOMATED 291 10^3/uL (150-450); WHITE BLOOD COUNT 6.6 10^3/uL (4.0-10.0)
[2024-05-17 15:09] LABS: HEMOGLOBIN A1c 5.3 % (4.0-6.0)
[2024-05-17 15:10] LABS: ALKALINE PHOSPHATASE 71 U/L (35-104); ALT/SGPT 22 U/L (7.0-40); AST/SGOT 20 U/L (<34); BILIRUBIN,TOTAL 1.3 MG/DL (0.3-1.2); BLOOD UREA NITROGEN 16 MG/DL (9-23); CALCIUM LEVEL 8.9 MG/DL (8.5-10.1); CARBON DIOXIDE LEVEL 28 MMOL/L (20-31); CHLORIDE LEVEL 104 MMOL/L (98-107); CHOLESTEROL LEVEL 176 MG/DL (<200); CHOLESTEROL RISK RATIO 4.09 (<5); GLOMERULAR FILTRATION RATE > 60.0 (>60); GLUCOSE, FASTING 87 MG/DL (60-100); LDL CHOLESTEROL 114.8 MG/DL (<100); MAGNESIUM LEVEL 1.8 MG/DL (1.8-2.4); POTASSIUM SERUM 4.6 MMOL/L (3.5-5.1); SODIUM LEVEL 139 MMOL/L (136-145); THYROID STIMULATING HORMONE 2.499 uIU/ML (0.55-4.78); TOTAL PROTEIN 6.3 G/DL (5.7-8.2); TRIGLYCERIDES LEVEL 91 MG/DL (<150)
[2024-05-17 15:12] LABS: FOLATE 8.6 NG/ML (>5.4); VITAMIN B12 LEVEL 495 PG/ML (211-911)
[2024-05-17 15:42] LABS: HIV 1&2 SCREEN NEGATIVE (NEGATIVE)
[2024-05-17 15:45] LABS: Trichomonas vaginalis (AMP) NOT DETECTED (NEGATIVE)
[2024-05-17 15:50] LABS: HEPATITIS C VIRUS ABY INDEX 0.03 INDEX (<0.8)
[2024-05-17 16:15] LABS: GC DNA AMPLIFICATION NEGATIVE (NEGATIVE)
== END ==
LOC: M EKG 11:58
PROVIDERS: ATTEND Nurse Practitioner Family
DX: R00.2 Palpitations (principal); Z11.9 Encounter for screening for infectious and parasitic diseases, unspecified; E66.3 Overweight; R53.83 Other fatigue

== ENCOUNTER → 2024-06-03 | Outpatient (CLI) | payer OTHER ==
[~2024-06-03] MED LIST changes: +PROHANCE 279.3MG/ML 15ML VIAL ONE; +PROHANCE 279.3MG/ML 5ML VIAL ONE
== END ==
LOC: M PLAIMG 09:50
PROVIDERS: ATTEND Psychiatry & Neurology Neurology
DX: G37.9 Demyelinating disease of central nervous system, unspecified (principal); G35 Multiple sclerosis

== ENCOUNTER → 2024-07-21 | Outpatient (CLI) | payer OTHER ==
[~2024-07-21] MED LIST changes: -PROHANCE 279.3MG/ML 15ML VIAL ONE; -PROHANCE 279.3MG/ML 5ML VIAL ONE
== END ==
LOC: M SLEEP 07:40
PROVIDERS: ATTEND Nurse Practitioner Family
DX: Z86.79 Personal history of other diseases of the circulatory system (principal)

== ENCOUNTER → 2024-12-07 | Outpatient (CLI) | payer OTHER ==
[2024-12-09 15:02] LABS: HPV APTIMA Not Detected (Not Detected)
== END ==
LOC: M RAD 12:00
PROVIDERS: ATTEND Nurse Practitioner Family
DX: M25.561 Pain in right knee (principal); Z12.4 Encounter for screening for malignant neoplasm of cervix